=== PATIENT | male | born 1960 | race Caucasian/White ===

== ENCOUNTER 2017-08-25 15:04 | Inpatient (IN) | payer BC ==
[2017-08-25] MEDS ORDERED: Magnesium Oxide 400 MG Tab PO ONE (16:09)
[2017-08-25] MEDS ORDERED: Thiamine 100 MG in Sodium Chloride 0.9% 10 ML IV ONE (16:09)
[2017-08-25] MEDS ORDERED: Sodium Chloride 0.9% 10 ML Syringe FLUSH PRN ×2 (16:09→19:15)
[2017-08-25] MEDS ORDERED: Folic Acid 1 MG Tab PO ONE (16:09)
[2017-08-25] MEDS ORDERED: Potassium Chloride 10 MEQ in Premix Bag 1 BAG IV ONE ×4 (16:15)
[2017-08-25] MEDS ORDERED: Magnesium Sulfate/Water 2 GM in Premix Bag 1 BAG IV ONE ×2 (16:15→23:15)
--- NOTE | 2017-08-25 16:20 | EDM.PDOC ---
ED HPI GENERAL MEDICAL PROBLEM - General Chief Complaint: Abdominal Pain Stated Complaint: SENT BY FAM-LIVER FAILURE Time Seen by Provider: 08/25/17 15:55 Source of Information: Reports: Patient History Limitations: Reports: No Limitations - History of Present Illness INITIAL COMMENTS - FREE TEXT/NARRATIVE: Patient is a 56-year-old male who presents to the ED complaining of painless jaundice and distention to the abdomen. Patient was evaluated by PCP Dr. Hammond today with these concerns. Patient was referred to the ED with concerns of gallstone blocking the common bile duct. Patient has had no RUQ pain at this point. States he is a chronic alcoholic and normally drinks approx 3 to 5 shots of whiskey every evening and also a few beers. States he's been consuming alcohol like this since he was 21. In addition patient also been complaining of a slight cough that has been going on for the past week. Minimal production. He has had diarrhea as of recent. Appetite has been poor for the past week. States he has not eaten anything. Has not consumed any alcohol since Monday. Patient's urine as of the past few weeks has grown increasingly more dark. Denies any chest pain, nausea/vomiting, abdominal pain, blood within his urination or stool, dysuria, cancer history, history of hepatitis or IV drug use , recent out of country travel, ingestion of bad/questionable food, or any additional complaint. Lower Back Pain Score (Numeric/FACES): 4 - Related Data Allergies Allergy/AdvReac Type Severity Reaction Status Date / Time penicillin Allergy Cannot Verified 11/12/14 08:21 Remember venom-honey bee Allergy Cannot Verified 11/12/14 11:16 [bee venom (honey bee)] Remember codeine AdvReac Dizziness Verified 11/12/14 09:32 Home Meds: Home Meds Aspirin 1 tab PO DAILY 11/12/14 [History] Fish Oil/[place]-3 Fatty Acids [Fish Oil] 1 tab PO DAILY 11/12/14 [History] Past Medical History Respiratory History: Reports: Sleep Apnea Other Respiratory History: doesn't wear c-pap-does not work for him Gastrointestinal History: Reports: Jaundice Other Musculoskeletal History: lower back pain Psychiatric History: Reports: Addiction Other Psychiatric History: alcohol - Past Surgical History Musculoskeletal Surgical History: Reports: Other (See Below) Other Musculoskeletal Surgeries/Procedures:: low back and neck surgery Social & Family History - Tobacco Use Smoking Status *Q: Never Smoker - Recreational Drug Use Recreational Drug Use: No ED ROS GENERAL - Review of Systems Review Of Systems: ROS reveals no pertinent complaints other than HPI. ED EXAM, GENERAL - Physical Exam Exam: See Below Exam Limited By: No Limitations General Appearance: Alert, WD/WN, No Apparent Distress Eye Exam: Bilateral Eye: PERRL, Other (Sclerae icterus bilaterally) Ears: Hearing Grossly Normal Nose: Normal Inspection Throat/Mouth: Normal Voice, No Airway Compromise, Other (Jaundice noted to the oral mucous membranes.) Head: Atraumatic, Normocephalic Neck: Normal Inspection, Supple Respiratory/Chest: No Respiratory Distress, Lungs Clear, Normal Breath Sounds, No Accessory Muscle Use, Chest Non-Tender Cardiovascular: Normal Peripheral Pulses, Regular Rate, Rhythm, No Murmur Peripheral Pulses: 4+: Radial (L), Radial (R) GI/Abdominal: Normal Bowel Sounds, Distended, Other (Venous congestion noted. Fluid wave positive.) (Male) Exam: Deferred (No complaints) Rectal (Males) Exam: Deferred (No complaints) Back Exam: Normal Inspection Extremities: Normal Inspection, Normal Range of Motion, Non-Tender, No Pedal Edema, Normal Capillary Refill Neurological: Alert, Oriented, CN II-XII Intact, Normal Cognition, No Motor/ Sensory Deficits Psychiatric: Normal Affect, Normal Mood Skin Exam: Warm, Dry, Intact, No Rash, Jaundice Course - Vital Signs Last Recorded V/S: Last Vital Signs Temp 98.8 F 08/25/17 15:21 Pulse 103 H 08/25/17 15:21 Resp 20 08/25/17 15:21 BP 135/84 08/25/17 15:21 Pulse Ox 98 08/25/17 15:21 - Orders/Labs/Meds Orders: Active Orders 24 hr Category Date Time Status Cardiac Monitoring [RC] . DIRECTED Care 08/25/17 16:09 Active EKG Documentation Completion [RC] STAT Care 08/25/17 16:12 Active Oxygen Therapy [RC] PRN Care 08/25/17 16:10 Active Peripheral IV Care [RC] . DIRECTED Care 08/25/17 16:12 Active DRUG SCREEN, URINE [URCHEM] Stat Lab 08/25/17 18:27 Ordered Sodium Chloride 0.9% [Normal Saline] 1,000 ml Med 08/25/17 16:15 Active IV ASDIRECTED Sodium Chloride 0.9% [Saline Flush] Med 08/25/17 16:09 Active 10 ml FLUSH ASDIRECTED PRN Sodium Chloride 0.9% [Saline Flush] Med 08/25/17 19:15 Active 10 ml FLUSH ONETIME PRN Peripheral IV Insertion Adult [OM.PC] Urgent Oth 08/25/17 16:09 Ordered Medication Orders Sodium Chloride (Normal Saline) 1,000 mls @ 125 mls/hr IV ASDIRECTED GIANFRANCO Last Admin: 08/25/17 17:07 Dose: 125 mls/hr Sodium Chloride (Saline Flush) 10 ml FLUSH ASDIRECTED PRN PRN Reason: Keep Vein Open Last Admin: 08/25/17 17:15 Dose: 10 ml Sodium Chloride (Saline Flush) 10 ml FLUSH ONETIME PRN PRN Reason: IV FLUSH Last Admin: 08/25/17 19:39 Dose: 10 ml Labs: Laboratory Tests 08/25/17 08/25/17 08/25/17 Range/Units 15:50 15:50 16:25 PT (9.5-12.1) SECONDS INR Magnesium (1.8-2.4) mg/dl Direct Bilirubin 4.50 H (0.0-0.2) mg/dl GGT 286 H (15-85) U/L Urine Color [place] H (Yellow) Urine Appearance Clear (Clear) Urine pH 7.0 (5.0-8.0) Ur Specific [place] 1.020 (1.005-1.030) Urine Protein 1+ H (Negative) Urine Glucose (UA) Trace H (Negative) Urine Ketones Trace H (Negative) Urine Occult Blood Negative (Negative) Urine Nitrite Positive H (Negative) Urine Bilirubin 3+ H (Negative) Urine Urobilinogen >=8.0 H (0.2-1.0) Ur Leukocyte Esterase Negative (Negative) Urine RBC 0-5 (0-5) /hpf Urine WBC 0-5 (0-5) /hpf Ur Epithelial Cells 0-5 (0-5) /hpf Amorphous Sediment Few H (NOT SEEN) /hpf Urine Bacteria Moderate H (FEW) /hpf Hyaline Casts 0-5 (0-5) /lpf Urine Mucus Moderate H (FEW) /hpf Urine Opiates Screen (NEGATIVE) Ur Buprenorphine Scrn (NEGATIVE) Ur Oxycodone Screen (NEGATIVE) Urine Methadone Screen (NEGATIVE) Ur Propoxyphene Screen (NEGATIVE) Acetaminophen 0 L (10-30) ug/mL Ur Barbiturates Screen (NEGATIVE) Ur Tricyclics Screen (NEGATIVE) Ur Phencyclidine Scrn (NEGATIVE) Ur Amphetamine Screen (NEGATIVE) U Methamphetamines Scrn (NEGATIVE) U Benzodiazepines Scrn (NEGATIVE) U Cocaine Metab Screen (NEGATIVE) U Marijuana (THC) Screen (NEGATIVE) Ethyl Alcohol 0.00 (0.00) gm% 08/25/17 08/25/17 08/25/17 Range/Units 16:30 16:30 18:27 PT 22.5 H (9.5-12.1) SECONDS INR 2.09 Magnesium 1.0 L (1.8-2.4) mg/dl Direct Bilirubin (0.0-0.2) mg/dl GGT (15-85) U/L Urine Color (Yellow) Urine Appearance (Clear) Urine pH (5.0-8.0) Ur Specific [place] (1.005-1.030) Urine Protein (Negative) Urine Glucose (UA) (Negative) Urine Ketones (Negative) Urine Occult Blood (Negative) Urine Nitrite (Negative) Urine Bilirubin (Negative) Urine Urobilinogen (0.2-1.0) Ur Leukocyte Esterase (Negative) Urine RBC (0-5) /hpf Urine WBC (0-5) /hpf Ur Epithelial Cells (0-5) /hpf Amorphous Sediment (NOT SEEN) /hpf Urine Bacteria (FEW) /hpf Hyaline Casts (0-5) /lpf Urine Mucus (FEW) /hpf Urine Opiates Screen Negative (NEGATIVE) Ur Buprenorphine Scrn Negative (NEGATIVE) Ur Oxycodone Screen Negative (NEGATIVE) Urine Methadone Screen Negative (NEGATIVE) Ur Propoxyphene Screen Negative (NEGATIVE) Acetaminophen (10-30) ug/mL Ur Barbiturates Screen Negative (NEGATIVE) Ur Tricyclics Screen Negative (NEGATIVE) Ur Phencyclidine Scrn Negative (NEGATIVE) Ur Amphetamine Screen Negative (NEGATIVE) U Methamphetamines Scrn Negative (NEGATIVE) U Benzodiazepines Scrn Negative (NEGATIVE) U Cocaine Metab Screen Negative (NEGATIVE) U Marijuana (THC) Screen Negative (NEGATIVE) Ethyl Alcohol (0.00) gm% Meds: Medications Generic Name Dose Route Start Last Admin Trade Name Freq PRN Reason Stop Dose Admin Sodium Chloride 1,000 mls @ 125 mls/hr 08/25/17 16:15 08/25/17 17:07 Normal Saline IV 125 mls/hr ASDIRECTED GIANFRANCO Administration Sodium Chloride 10 ml 08/25/17 16:09 08/25/17 17:15 Saline Flush FLUSH 10 ml ASDIRECTED PRN Administration Keep Vein Open Sodium Chloride 10 ml 08/25/17 19:15 08/25/17 19:39 Saline Flush FLUSH 10 ml ONETIME PRN Administration IV FLUSH Discontinued Medications Generic Name Dose Route Start Last Admin Trade Name Freq PRN Reason Stop Dose Admin Diatrizoate Meglum/Diatrizoate Sod 120 ml 08/25/17 19:15 08/25/17 19:38 Gastrografin 37% PO 08/25/17 19:16 90 ml ONETIME ONE Administration Folic Acid 1 mg 08/25/17 16:09 08/25/17 17:24 Folic Acid PO 08/25/17 16:10 1 mg ONETIME ONE Administration Thiamine HCl 100 mg/ Sodium 11 mls @ 200 mls/hr 08/25/17 16:09 08/25/17 17:18 Chloride IV 08/25/17 16:12 Not Given ONETIME ONE Magnesium Sulfate 2 gm/ Premix 50 mls @ 25 mls/hr 08/25/17 16:15 08/25/17 17: 15 IV 08/25/17 18:14 25 mls/hr ONETIME ONE Administration Potassium Chloride 10 meq/ 100 mls @ 100 mls/hr 08/25/17 16:15 08/25/17 17:12 Premix IV 08/25/17 17:14 100 mls/hr ONETIME ONE Administration Potassium Chloride 10 meq/ 100 mls @ 100 mls/hr 08/25/17 16:15 08/25/17 18:31 Premix IV 08/25/17 17:14 100 mls/hr ONETIME ONE Administration Thiamine HCl 100 mg/ Sodium 101 mls @ 202 mls/hr 08/25/17 17:14 08/25/17 17: 17 Chloride IV 08/25/17 17:15 202 mls/hr ONETIME ONE Administration Iopamidol 150 ml 08/25/17 19:15 08/25/17 19:39 Isovue-300 (61%) IVPUSH 08/25/17 19:16 150 ml ONETIME ONE Administration Magnesium Oxide 400 mg 08/25/17 16:09 08/25/17 17:24 Magnesium Oxide PO 08/25/17 16:10 400 mg ONETIME ONE Administration - Re-Assessments/Exams Free Text/Narrative Re-Assessment/Exam: Labs obtained at included: WBC with differential, amylase, lipase, ammonia level, and CMP. CBC: White blood cell count 4.2, hemoglobin 14.3, platelet count 29, ammonia level 16, amylase 78, lipase 319, glucose 131, BUN 5, creatinine 0.8, sodium 135 , potassium 3.1, CO2 29, AG 14, calcium 7.6, albumin 3.0, alk phosphatase 149, AST 341, ALT 63, total bilirubin 8.6. IV established. I ordered full gas at 1 mg by mouth, magnesium oxide 4 mg by mouth, and also thiamine arm against by mouth. Patient's potassium level was 3.1 over it [facility]. I ordered potassium 20 mEq and also magnesium 2 g IV. I ordered urine drug screen, UA, significant lateral, and serum EtOH. In addition pleat abdomen and chest x-ray two-view along with EKG and cardiac monitoring ordered. I also ordered GGT and also direct bilirubin. EKG sinus rhythm at a rate [address] T changes. NV interval is 190. QTC is 506. Per nursing staff patient already had a chest x-ray over at [facility]. This was not voiced to me. Results were not provided to us as well. They are contacting [place] at this time to get the results and have images sent. Direct bilirubin is 4.5. GGT is 286. Acetaminophen low. Serum EtOH 0.00. UA has not been obtained. CXR obtained at revealed no acute findings. Reviewed with Dr. Cordova. Ultrasound impression: Very echogenic liver most likely representing fatty infiltration. Spinal negative. Mild ascites. Gallbladder wall thickening with questionable small gallbladder polyp. Gallbladder wall thickening may be artificial as this can be caused by ascites. No shattering cholelithiasis is seen. Common bile duct measures slightly prominent 8 mm. Magnesium is 1.0. INR is 2.09. Findings are consistent with malnutrition and also chronic liver disease. UA: Origin color, protein one plus, trace glucose, ketones trace, nitrates positive, bilirubin 3+, urobilinogen greater than 8, amorphous sediment few, bacteria moderate, urine mucus moderate. CT abdomen and pelvis Technique: Multiple axial sections were obtained from above the dome of the diaphragm inferiorly through the pubic symphysis. Intravenous contrast was utilized. Oral contrast has been given. Comparison: Previous abdominal ultrasound performed on the same day (4:47 PM). Findings: Small portion of the visualized lung bases are clear. Liver is diffusely abnormal with multiple small nodular areas of poor enhancement. Findings most likely due to diffuse cirrhotic change. Liver biopsy would be needed to further evaluate. Spleen is enlarged. Adrenal glands show no nodule. Pancreas is within normal limits. Aorta shows atherosclerotic change without aneurysmal dilatation. No retroperitoneal adenopathy is seen. Kidneys show symmetric contrast enhancement without hydronephrosis or mass. Gallbladder shows no calcified gallstones. Ascites is seen throughout the abdomen and pelvis. Prominent mesenteric vessels are seen most likely due the portal hypertension from the liver disease. There is a fat containing umbilical hernia which contains some of these dilated vessels. No pelvic mass or adenopathy is seen. Degenerative change is noted throughout the spine. Impression: 1. Diffusely abnormal liver with multiple small nodular areas of poor enhancement. Findings most likely represent cirrhosis although liver biopsy is recommended to further evaluate. 2. Splenomegaly which is likely from portal hypertension. 3. Prominent mesenteric vessels also felt compatible with portal hypertension from the liver disease. 4. Ascites. 5. Other incidental findings. I have ordered a hepatitis panel. [address] Echols [facility] . Does not believe patient requires transfer to [place] for management this point. Can be done here locally. States the patient needs to be admitted for at least a week and started on Aldactone 100 mg every day Lasix 40 mg every day. In addition also recommends stool studies be obtained with a history of diarrhea. Patient has had 4 episodes of diarrhea while in the ED. Studies will include stool wbc's, C. difficile, stool culture, and ova parasites. Also suggested low- salt diet. No aspirin. Ascites worsens and INR has not decreased may administer FFP for paracentesis as long as platelets are adequate. At this point medical management required. 2119 I have spoke with Dr. Frazier [facility]. He has accepted the patient. MCG to be completed. Dx: thrombocytopenia, hypokalemia, hypomagnesemia, elevated direct bilirubin, elevated GGT, alcoholism, ascites, elevated INR, diarrhea, likely cirrhosis, and portal hypertension. Departure - Departure Time of Disposition: 15:55 Disposition: Admitted As Inpatient 66 Condition: Good Clinical Impression: Thrombocytopenia due to hypersplenism, Elevated INR, Hypokalemia, Low magnesium level, Portal hypertension Cirrhosis, alcoholic Qualifiers: Ascites presence: with ascites Qualified Code(s): K70.31 - Alcoholic cirrhosis of liver with ascites Diarrhea Qualifiers: Diarrhea type: unspecified type Qualified Code(s): R19.7 - Diarrhea, unspecified - Discharge Information Referrals: Lisette Koehler MD [Primary Care Provider] - Forms: ED Department Discharge - My Orders Last 24 Hours: My Active Orders 08/25/17 16:09 Cardiac Monitoring [RC] . DIRECTED Sodium Chloride 0.9% [Saline Flush] 10 ml FLUSH ASDIRECTED PRN Peripheral IV Insertion Adult [OM.PC] Urgent 08/25/17 16:10 Oxygen Therapy [RC] PRN 08/25/17 16:12 EKG Documentation Completion [RC] STAT Peripheral IV Care [RC] . DIRECTED 08/25/17 16:15 Sodium Chloride 0.9% [Normal Saline] 1,000 ml IV ASDIRECTED 08/25/17 18:27 DRUG SCREEN, URINE [URCHEM] Stat 08/25/17 19:15 Sodium Chloride 0.9% [Saline Flush] 10 ml FLUSH ONETIME PRN - Assessment/Plan Last 24 Hours: My Active Orders 08/25/17 16:09 Cardiac Monitoring [RC] . DIRECTED Sodium Chloride 0.9% [Saline Flush] 10 ml FLUSH ASDIRECTED PRN Peripheral IV Insertion Adult [OM.PC] Urgent 08/25/17 16:10 Oxygen Therapy [RC] PRN 08/25/17 16:12 EKG Documentation Completion [RC] STAT Peripheral IV Care [RC] . DIRECTED 08/25/17 16:15 Sodium Chloride 0.9% [Normal Saline] 1,000 ml IV ASDIRECTED 08/25/17 18:27 DRUG SCREEN, URINE [URCHEM] Stat 08/25/17 19:15 Sodium Chloride 0.9% [Saline Flush] 10 ml FLUSH ONETIME PRN
[2017-08-25] MEDS: Sodium Chloride 0.9% 1,000 ML IV SCH (17:07)
[2017-08-25] MEDS ORDERED: Thiamine 100 MG in Sodium Chloride 0.9% 100 ML IV ONE (17:14)
--- NOTE | 2017-08-25 17:46 | US ---
Abdominal ultrasound: Multiple real-time images of the abdomen were obtained. Comparison: No prior abdominal imaging. Findings: Liver is very echogenic most likely representing fatty infiltration. Liver is also generous in size. Small amount of fluid is seen around the liver. Gallbladder is slightly distended. Gallbladder wall thickening is seen although difficult to determine if this is a real finding given that this can occur with ascites. Questionable small gallbladder polyp is seen. No shadowing cholelithiasis is noted. Common bile duct measures at the upper limits of normal at 8 mm. Kidneys show no hydronephrosis or mass. Right kidney measures 13.2 cm in length. Left kidney measures 12.6 cm in length. Spleen is enlarged with a length of 16.7 cm. Aorta is poorly seen due to obscuring bowel gas. Pancreas is mostly obscured. Head of the pancreas is felt to be within normal limits. Inferior vena cava and portal vein were not able to be seen. Impression: 1. Very echogenic liver most likely representing fatty infiltration. 2. Splenomegaly. 3. Mild ascites. 4. Gallbladder wall thickening with questionable small gallbladder polyp. Gallbladder wall thickening may be artifactual as this can be caused by ascites. No shadowing cholelithiasis is seen. Common bile duct measures slightly prominent at 8 mm. Diagnostic code #3
[2017-08-25] MEDS ORDERED: Iopamidol 612 MG/ML 150 ML Bottle IVPUSH ONE (19:15)
[2017-08-25] MEDS ORDERED: Diatrizoate Meglumine/Diatrizoate Sodium 37% 120 ML Bottle PO ONE (19:15)
--- NOTE | 2017-08-25 20:06 | CT ---
CT abdomen and pelvis Technique: Multiple axial sections were obtained from above the dome of the diaphragm inferiorly through the pubic symphysis. Intravenous contrast was utilized. Oral contrast has been given. Comparison: Previous abdominal ultrasound performed on the same day (4:47 PM). Findings: Small portion of the visualized lung bases are clear. Liver is diffusely abnormal with multiple small nodular areas of poor enhancement. Findings most likely due to diffuse cirrhotic change. Liver biopsy would be needed to further evaluate. Spleen is enlarged. Adrenal glands show no nodule. Pancreas is within normal limits. Aorta shows atherosclerotic change without aneurysmal dilatation. No retroperitoneal adenopathy is seen. Kidneys show symmetric contrast enhancement without hydronephrosis or mass. Gallbladder shows no calcified gallstones. Ascites is seen throughout the abdomen and pelvis. Prominent mesenteric vessels are seen most likely due the portal hypertension from the liver disease. There is a fat containing umbilical hernia which contains some of these dilated vessels. No pelvic mass or adenopathy is seen. Degenerative change is noted throughout the spine. Impression: 1. Diffusely abnormal liver with multiple small nodular areas of poor enhancement. Findings most likely represent cirrhosis although liver biopsy is recommended to further evaluate. 2. Splenomegaly which is likely from portal hypertension. 3. Prominent mesenteric vessels also felt compatible with portal hypertension from the liver disease. 4. Ascites. 5. Other incidental findings. Diagnostic code #9
[2017-08-25] MEDS ORDERED: Metoprolol Tartrate 5 MG/5 ML SDV IVPUSH PRN (22:39)
[2017-08-25] MEDS ORDERED: hydrALAZINE 20 MG/ML SDV IVPUSH PRN (22:39)
[2017-08-25] MEDS ORDERED: LORazepam 2 MG/ML SDV IVPUSH PRN ×2 (22:39→23:13)
[2017-08-25] MEDS ORDERED: oxyCODONE 5 MG Tab PO PRN (22:40)
[2017-08-25] MEDS ORDERED: Acetaminophen 325 MG Tab PO PRN (22:40)
[2017-08-25] MEDS ORDERED: Morphine 2 MG/ML Syringe IVPUSH PRN (22:40)
[2017-08-25] MEDS ORDERED: Promethazine 12.5 MG in Sodium Chloride 0.9% 50 ML IV PRN (22:43)
[2017-08-25] MEDS ORDERED: Albuterol/Ipratropium 3.0-0.5 MG/3 ML Neb Soln NEB PRN (22:43)
[2017-08-25] MEDS ORDERED: Temazepam 15 MG Cap PO PRN (22:43)
[2017-08-25] MEDS ORDERED: Ondansetron 4 MG/2 ML SDV IV PRN (22:43)
[2017-08-25] MEDS ORDERED: LORazepam 2 MG/ML SDV IV PRN (22:43)
[2017-08-25] MEDS ORDERED: Lactulose Soln 10 GM/15 ML 30 ML UD Cup PO PRN (23:08)
--- NOTE | 2017-08-25 23:10 | PCM.HP ---
H&P History of Present Illness - General Date of Service: 08/25/17 Admit Problem/Dx: Admission Diagnosis/Problem Admission Diagnosis/Problem Cirrhosis of liver with ascites Source of Information: Patient, Family, Provider, RN Notes Reviewed History Limitations: Reports: No Limitations - History of Present Illness Initial Comments - Free Text/Narative: This is a 56-year-old white male with a past medical hx/o EBER not on CPAP, Chronic LBP and Obesity who comes in for evaluation of painless jaundice and abdominal distention. Patient was initially seen at his PCP's office but was referred to ED for further evaluation for concerns of obstructing gallstone in the common bile duct. Patient reports no RUQ pain. However he carries a hx/o chronic alcohol use/ abuse since he was 15 years old. He normally drinks 3-4 shots of whiskey and at times a few beers. His main complaint is a mild cough with minimal production that has been going on for the past week. He has yellow eyes and increasingly dark colored urine. He denies any chest pain, shortness of breath, nausea/ vomiting, abdominal pain but admits to having watery diarrhea. He denies any hx/o blood transfusions, no IVDU, incarceration and or viral hepatitis in the past. Patient moved here in [place] in 2011 from [place] with his family. His initial work up in ED shows an abnormal coagulation studies of 22.5 PT and 2.09 of INR. His magnesium is 1.0, direct bilirubin of 4.0, GGT of 286, and total bilirubin of 8.4. His UA shows orange colored, 3+ of urine bilirubin and greater than 8 urobilinogen. His UDS is negative. C. difficile screening is positive. Abdominal ultrasound report reads very atypical genic liver most likely representing fatty infiltration. His splenomegaly. Mild ascites. Gallbladder wall thickening with questionable small gallbladder polyp. Gallbladder wall thickening may be artifactual as discussed and because of ascites. No shadowing cholelithiasis is seen. Common bile duct measures slightly prominent at 8 mm. Abdominal/Pelvic CT scan report reads diffuse abnormal liver with multiple small nodule areas of poor enhancement. Findings most likely represent cirrhosis of the liver biopsy is recommended to further evaluate. Splenomegaly which is likely from portal hypertension. Mesenteric vessels also compatible with portal hypertension from the liver disease. Ascites. Patient is being admitted for complications related to liver disease likely alcoholic cirrhosis. He is full code. Lower Back Pain Score (Numeric/FACES): 4 - Related Data Allergies/Adverse Reactions: Allergies Allergy/AdvReac Type Severity Reaction Status Date / Time penicillin Allergy Cannot Verified 08/26/17 03:38 Remember venom-honey bee Allergy Cannot Verified 08/26/17 03:38 [bee venom (honey bee)] Remember codeine AdvReac Dizziness Verified 08/26/17 03:38 Home Medications: Home Meds Aspirin 1 tab PO DAILY 11/12/14 [History] Fish Oil/[place]-3 Fatty Acids [Fish Oil] 1 tab PO DAILY 11/12/14 [History] Past Medical History Respiratory History: Reports: Sleep Apnea Other Respiratory History: doesn't wear c-pap-does not work for him Gastrointestinal History: Reports: Jaundice Other Musculoskeletal History: lower back pain Psychiatric History: Reports: Addiction Other Psychiatric History: alcohol - Past Surgical History Musculoskeletal Surgical History: Reports: Other (See Below) Other Musculoskeletal Surgeries/Procedures:: low back and neck surgery Social & Family History - Tobacco Use Smoking Status *Q: Never Smoker - Recreational Drug Use Recreational Drug Use: No H&P Review of Systems - Review of Systems: Review Of Systems: See Below General: Denies: Fever, Chills, Malaise, Weakness, Fatigue HEENT: Reports: Other (icteric sclerae) Pulmonary: Reports: Cough, Sputum. Denies: Shortness of Breath, Pleuritic Chest Pain Cardiovascular: Denies: Chest Pain, Palpitations, Dyspnea on Exertion, Lightheadedness, Blood Pressure Problem Gastrointestinal: Reports: Diarrhea, Distension. Denies: Abdominal Pain, Decreased Appetite, Nausea, Vomiting Genitourinary: Reports: No Symptoms, Other (colored urine) Musculoskeletal: Reports: No Symptoms Skin: Denies: Cyanosis, Jaundice, Mottled, Pallor, Diaphoresis, Erythema Psychiatric: Denies: Depression, Anxiety, Agitation, Hallucinations Neurological: Denies: Confusion, Difficulty Walking, Weakness, Gait Disturbance Hematologic/Lymphatic: Reports: No Symptoms Immunologic: Reports: No Symptoms Exam - Exam Exam: See Below - Vital Signs Vital Signs: Last Vital Signs Temp 37.1 C 08/25/17 15:21 Pulse 97 08/25/17 20:31 Resp 18 08/25/17 20:31 BP 117/70 08/25/17 20:31 Pulse Ox 95 08/25/17 20:31 Weight: 119.748 kg - Exam General: Alert, Oriented, Cooperative, Other (Obese). No: Mild Distress HEENT: Conjunctiva Clear, EACs Clear, EOMI, Hearing Intact, Mucosa Moist & [place] , Nares Patent, Normal Nasal Septum, Posterior Pharynx Clear, Pupils Equal, Pupils Reactive, Scleral Icterus Neck: Supple, Trachea Midline, +2 Carotid Pulse wo Bruit Lungs: Clear to Auscultation, Normal Respiratory Effort, Decreased Breath Sounds Cardiovascular: Regular Rate, Regular Rhythm GI/Abdominal Exam: Normal Bowel Sounds, Soft, Non-Tender, Distended, Hernia ( Umbilical), Hepatomegaly, Splenomegaly, Other (Caput Medusae; Umbilical Hernia) . No: Guarding, Rigid, Rebound (Male) Exam: Deferred Rectal (Males) Exam: Deferred Back Exam: Normal Inspection, Decreased Range of Motion Extremities: Normal Inspection, Normal Range of Motion, Non-Tender, Normal Capillary Refill, Other (trace peripheral edema) Peripheral Pulses: 2+: Posterior Tibial (L), Posterior Tibial (R), Dorsalis Pedis (L), Dorsalis Pedis (R) Skin: Warm, Dry, Intact Skin Alteration Location (Drawings Not To Scale): 1 - prominet blood vessels 2 - palmar erythema 3 - palmar erythema 4 - spider nevi or angiomata 5 - spider nevi or angiomata Neuro Extensive - Mental Status: Oriented x3, Normal Cognition, Memory Intact Neuro Extensive - Motor, Sensory, Reflexes: CN II-XII Intact, Normal Gait, Other (No asterixis) Psychiatric: Alert, Normal Affect, Normal Mood - Patient Data Lab Results Last 24 hrs: Laboratory Results - last 24 hr 08/25/17 08/25/17 08/25/17 Range/Units 15:50 15:50 16:25 PT (9.5-12.1) SECONDS INR Magnesium (1.8-2.4) mg/dl Direct Bilirubin 4.50 H (0.0-0.2) mg/dl GGT 286 H (15-85) U/L Urine Color Red [place] H (Yellow) Urine Appearance Clear (Clear) Urine pH 7.0 (5.0-8.0) Ur Specific [place] 1.020 (1.005-1.030) Urine Protein 1+ H (Negative) Urine Glucose (UA) Trace H (Negative) Urine Ketones Trace H (Negative) Urine Occult Blood Negative (Negative) Urine Nitrite Positive H (Negative) Urine Bilirubin 3+ H (Negative) Urine Urobilinogen >=8.0 H (0.2-1.0) Ur Leukocyte Esterase Negative (Negative) Urine RBC 0-5 (0-5) /hpf Urine WBC 0-5 (0-5) /hpf Ur Epithelial Cells 0-5 (0-5) /hpf Amorphous Sediment Few H (NOT SEEN) /hpf Urine Bacteria Moderate H (FEW) /hpf Hyaline Casts 0-5 (0-5) /lpf Urine Mucus Moderate H (FEW) /hpf Urine Opiates Screen (NEGATIVE) Ur Buprenorphine Scrn (NEGATIVE) Ur Oxycodone Screen (NEGATIVE) Urine Methadone Screen (NEGATIVE) Ur Propoxyphene Screen (NEGATIVE) Acetaminophen 0 L (10-30) ug/mL Ur Barbiturates Screen (NEGATIVE) Ur Tricyclics Screen (NEGATIVE) Ur Phencyclidine Scrn (NEGATIVE) Ur Amphetamine Screen (NEGATIVE) U Methamphetamines Scrn (NEGATIVE) U Benzodiazepines Scrn (NEGATIVE) U Cocaine Metab Screen (NEGATIVE) U Marijuana (THC) Screen (NEGATIVE) Ethyl Alcohol 0.00 (0.00) gm% 08/25/17 08/25/17 08/25/17 Range/Units 16:30 16:30 18:27 PT 22.5 H (9.5-12.1) SECONDS INR 2.09 Magnesium 1.0 L (1.8-2.4) mg/dl Direct Bilirubin (0.0-0.2) mg/dl GGT (15-85) U/L Urine Color (Yellow) Urine Appearance (Clear) Urine pH (5.0-8.0) Ur Specific [place] (1.005-1.030) Urine Protein (Negative) Urine Glucose (UA) (Negative) Urine Ketones (Negative) Urine Occult Blood (Negative) Urine Nitrite (Negative) Urine Bilirubin (Negative) Urine Urobilinogen (0.2-1.0) Ur Leukocyte Esterase (Negative) Urine RBC (0-5) /hpf Urine WBC (0-5) /hpf Ur Epithelial Cells (0-5) /hpf Amorphous Sediment (NOT SEEN) /hpf Urine Bacteria (FEW) /hpf Hyaline Casts (0-5) /lpf Urine Mucus (FEW) /hpf Urine Opiates Screen Negative (NEGATIVE) Ur Buprenorphine Scrn Negative (NEGATIVE) Ur Oxycodone Screen Negative (NEGATIVE) Urine Methadone Screen Negative (NEGATIVE) Ur Propoxyphene Screen Negative (NEGATIVE) Acetaminophen (10-30) ug/mL Ur Barbiturates Screen Negative (NEGATIVE) Ur Tricyclics Screen Negative (NEGATIVE) Ur Phencyclidine Scrn Negative (NEGATIVE) Ur Amphetamine Screen Negative (NEGATIVE) U Methamphetamines Scrn Negative (NEGATIVE) U Benzodiazepines Scrn Negative (NEGATIVE) U Cocaine Metab Screen Negative (NEGATIVE) U Marijuana (THC) Screen Negative (NEGATIVE) Ethyl Alcohol (0.00) gm% Result Diagrams: 08/27/17 06:25 08/27/17 06:25 Scott Results Last 24 hrs: Microbiology 08/25/17 21:20 Stool for WBCs - Final Stool / Feces 08/25/17 21:20 Stool Occult Blood (SCOTT) - Final Stool / Feces Problem List Initiated/Reviewed/Updated: Yes Orders Last 24hrs: Active Orders 24 hr Category Date Time Status Admission Status [Patient Status] [ADT] Routine ADT 08/25/17 22:14 Active Ambulate [RC] ASDIRECTED Care 08/25/17 22:40 Ordered Cardiac Monitoring [RC] . DIRECTED Care 08/25/17 16:09 Active Cardiac Monitoring [RC] . DIRECTED Care 08/25/17 22:14 Active Intake and Output [RC] QSHIFT Care 08/25/17 22:40 Ordered Notify Provider Consults [RC] ASDIRECTED Care 08/25/17 22:45 Ordered Oxygen Therapy [RC] PRN Care 08/25/17 16:10 Active Oxygen Therapy [RC] PRN Care 08/25/17 22:40 Ordered Peripheral IV Care [RC] . DIRECTED Care 08/25/17 16:12 Active RT Aerosol Therapy [RC] ASDIRECTED Care 08/25/17 22:44 Ordered Up ad Siobhan [RC] ASDIRECTED Care 08/25/17 22:40 Ordered VTE/DVT Education [RC] PER UNIT ROUTINE Care 08/25/17 22:40 Ordered Vital Signs [RC] Q4H Care 08/25/17 22:40 Ordered Consult to Case Management [CONS] Routine Cons 08/25/17 22:44 Ordered Consult to Survey Compiler [CONS] Routine Cons 08/25/17 22:44 Ordered Consult to Physician [CONS] Routine Cons 08/25/17 22:44 Ordered Consult to Brokerage Purchase And Sale Clerk [CONS] Routine Cons 08/25/17 22:44 Ordered Consult to Spiritual Care [CONS] Routine Cons 08/25/17 22:44 Ordered OT Evaluation and Treatment [CONS] Routine Cons 08/25/17 22:44 Ordered PT Evaluation and Treatment [CONS] Routine Cons 08/25/17 22:44 Ordered 2 Gram Sodium Diet [DIET] Diet 08/25/17 Dinner Ordered Fluid Restriction [DIET] Diet 08/25/17 Dinner Active AFP, SERUM, TUMOR MARKER [REF] Stat Lab 08/25/17 22:52 Ordered [id number] PHENOTYP [REF] Stat Lab 08/25/17 23:09 Ordered AMMONIA VENOUS [CHEM] Stat Lab 08/25/17 23:07 Ordered C DIFFICILE BY PCR W/NAP1 [MOLEC] Stat Lab 08/25/17 21:20 Received C-REACTIVE PROTEIN [CHEM] AM Lab 08/26/17 05:11 Ordered C-REACTIVE PROTEIN [CHEM] AM Lab 08/27/17 05:11 Ordered C-REACTIVE PROTEIN [CHEM] AM Lab 08/28/17 05:11 Ordered CBC WITH AUTO DIFF [HEME] AM Lab 08/26/17 05:11 Ordered CBC WITH AUTO DIFF [HEME] AM Lab 08/27/17 05:11 Ordered CBC WITH AUTO DIFF [HEME] AM Lab 08/28/17 05:11 Ordered CBC WITH AUTO DIFF [HEME] AM Lab 08/29/17 05:11 Ordered CBC WITH AUTO DIFF [HEME] AM Lab 08/30/17 05:11 Ordered COMPREHENSIVE METABOLIC PN,CMP [CHEM] AM Lab 08/26/17 05:11 Ordered COMPREHENSIVE METABOLIC PN,CMP [CHEM] AM Lab 08/27/17 05:11 Ordered COMPREHENSIVE METABOLIC PN,CMP [CHEM] AM Lab 08/28/17 05:11 Ordered COMPREHENSIVE METABOLIC PN,CMP [CHEM] AM Lab 08/29/17 05:11 Ordered COMPREHENSIVE METABOLIC PN,CMP [CHEM] AM Lab 08/30/17 05:11 Ordered CULTURE STOOL + SHIGATOX [RM] Stat Lab 08/25/17 21:20 Received DRUG SCREEN, URINE [URCHEM] Stat Lab 08/25/17 18:27 Ordered HEPATITIS PANEL (4) [REF] Stat Lab 08/25/17 21:00 Received Hemoccult [OCCULT BLOOD DIAGNOSTIC] [OP] Stat Lab 08/25/17 21:20 Ordered MAGNESIUM [CHEM] AM Lab 08/26/17 05:11 Ordered MAGNESIUM [CHEM] AM Lab 08/27/17 05:11 Ordered MAGNESIUM [CHEM] AM Lab 08/28/17 05:11 Ordered MAGNESIUM [CHEM] AM Lab 08/29/17 05:11 Ordered MAGNESIUM [CHEM] AM Lab 08/30/17 05:11 Ordered OVA & PARASITES BY IMMUNOASSAY [MREF] Stat Lab 08/25/17 21:20 Received WBC, STOOL [OP] Stat Lab 08/25/17 21:20 Ordered Acetaminophen [Tylenol] Med 08/25/17 22:40 Ordered 650 mg PO Q4H PRN Albuterol/Ipratropium [DuoNeb 3.0-0.5 MG/3 ML] Med 08/25/17 22:43 Ordered 3 ml NEB Q4H PRN Fish Oil/[place]-3 Fatty Acids [Fish Oil] Med 08/26/17 09:00 Ordered 1 tab PO DAILY LORazepam [Ativan] Med 08/25/17 22:43 Ordered 1 mg IV Q6H PRN LORazepam [Ativan] Med 08/25/17 22:39 Ordered 2 mg IVPUSH Q4H PRN Lactulose [Cephulac] Med 08/25/17 23:08 Ordered 20 gm PO BID PRN Magnesium Rep Pharmacy to Dose [Pharmacy to Dose - Med 08/25/17 22:45 Ordered Magnesium Replacement] 1 dose .XX ASDIRECTED Metoprolol Tartrate [Lopressor] Med 08/25/17 22:39 Ordered 5 mg IVPUSH Q4H PRN Morphine Med 08/25/17 22:40 Ordered 1 mg IVPUSH Q4H PRN Ondansetron [Zofran] Med 08/25/17 22:43 Ordered 4 mg IV Q6H PRN Pantoprazole [ProTONIX IV] Med 08/26/17 09:00 Ordered 40 mg IV Q12HR Potassium Rep Pharmacy to Dose [Pharmacy to Dose - Med 08/25/17 22:45 Ordered Potassium Replacement] 1 dose .XX ASDIRECTED Promethazine [Phenergan] 12.5 mg Med 08/25/17 22:43 Ordered Sodium Chloride 0.9% [Normal Saline] 50 ml IV Q6H Sodium Chloride 0.9% [Normal Saline] 1,000 ml Med 08/25/17 16:15 Active IV ASDIRECTED Sodium Chloride 0.9% [Saline Flush] Med 08/25/17 16:09 Active 10 ml FLUSH ASDIRECTED PRN Sodium Chloride 0.9% [Saline Flush] Med 08/25/17 19:15 Active 10 ml FLUSH ONETIME PRN Temazepam [Restoril] Med 08/25/17 22:43 Ordered 15 mg PO BEDTIME PRN hydrALAZINE [Apresoline] Med 08/25/17 22:39 Ordered 20 mg IVPUSH Q4H PRN oxyCODONE Med 08/25/17 22:40 Ordered 10 mg PO Q4H PRN Peripheral IV Insertion Adult [OM.PC] Urgent Oth 08/25/17 16:09 Ordered Sequential Compression Device [OM.PC] Per Unit Routine Oth 08/25/17 22:42 Ordered Resuscitation Status Routine Resus Stat 08/25/17 22:40 Ordered Medication Orders Acetaminophen (Tylenol) 650 mg PO Q4H PRN PRN Reason: Pain (Mild 1-3)/fever Albuterol/Ipratropium (Duoneb 3.0-0.5 Mg/3 Ml) 3 ml NEB Q4H PRN PRN Reason: Shortness Of Breath/wheezing Fish Oil (Fish Oil) 1 gm PO DAILY [facility] Hydralazine HCl (Apresoline) 20 mg IVPUSH Q4H PRN PRN Reason: Hypertension Sodium Chloride (Normal Saline) 1,000 mls @ 125 mls/hr IV ASDIRECTED [facility] Last Admin: 08/25/17 17:07 Dose: 125 mls/hr Promethazine HCl 12.5 mg/ (Sodium Chloride) 50.5 mls @ 100 mls/hr IV Q6H PRN PRN Reason: Nausea/Vomiting Lorazepam (Ativan) 2 mg IVPUSH Q4H PRN PRN Reason: Seizures Lorazepam (Ativan) 1 mg IV Q6H PRN PRN Reason: Anxiety Magnesium Sulfate (Pharmacy To Dose - Magnesium Replacement) 1 dose .XX ASDIRECTED [facility] Metoprolol Tartrate (Lopressor) 5 mg IVPUSH Q4H PRN PRN Reason: Tachycardia Morphine Sulfate (Morphine) 1 mg IVPUSH Q4H PRN PRN Reason: Pain (severe 7-10) Stop: 08/30/17 22:43 Ondansetron HCl (Zofran) 4 mg IV Q6H PRN PRN Reason: Nausea/Vomiting Oxycodone HCl (Oxycodone) 10 mg PO Q4H PRN PRN Reason: Pain (moderate 4-6) Pantoprazole Sodium (Protonix Iv) 40 mg IV Q12HR GIANFRANCO Potassium Chloride (Pharmacy To Dose - Potassium Replacement) 1 dose .XX ASDIRECTED GIANFRANCO Sodium Chloride (Saline Flush) 10 ml FLUSH ASDIRECTED PRN PRN Reason: Keep Vein Open Last Admin: 08/25/17 17:15 Dose: 10 ml Sodium Chloride (Saline Flush) 10 ml FLUSH ONETIME PRN PRN Reason: IV FLUSH Last Admin: 08/25/17 19:39 Dose: 10 ml Temazepam (Restoril) 15 mg PO BEDTIME PRN PRN Reason: Sleep Assessment/Plan Comment:: Assessment/Plan: Acute: Liver Cirrhosis/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 - Likely 2/2 ETOH Abuse - Carries a hx/o 15-20 of heavy alcoholic drinking - He drinks 3-4 shots of whiskey and sometimes with beers - CT scan report: Diffuse abnormal liver with multiple small nodular areas of poor enhancement--> biopsy is recommended (will be done outpatient) - Limit Tylenol to 3500/day and Advised to quit drinking - MELD Score 23 and Child-Duran Score 11 (Life Expectancy: 1-3 years with abdominal surgery raffaele-operative mortality of 82%) - Folic Acid, Thiamine and MVI Daily - Hepatitis Panel, Alpha fetoprotein and Alpha 1 anti-trypsin - Need liver biopsy for staging if he has HCC--> refer to GI in [place] Abdominal Ascites/Peripheral Edema and Portal HTN - 2/2 Above - Aldactone 25 mg po BID, Demadex 20 po daily, Capoten 12.5 mg po Q8H and Famotidine 20 mg IVP BID - CT scan: mild ascites--> no need for paracentesis at this time Splenomegaly - 2/2 Portal HTN - Treatment as above C. Diff Associated Diarrhea - New Onset - Vancomycin 125 mg po QID fro 10 days - Isolation precaution Jaundice/Hyperbilirubinemia - 2/2 ETOH Liver Cirrhosis - R/o Viral Hepatitis - Hospital has no cholestyramine so we will use fenofibrate for now then switch him to it on discharge Hypomagnesmia - Mg 1.0 - 2/2 inadequate intake - Replete and monitor Elevated PT/INR - Vit K 5 mg IM for 3 days then d/c Thrombocytopenia - 2/2 Splenic Sequestration - Platelet of 29,000 from the clinic - Avoid ASA ETOH Abuse - [facility] Protocol - Ativan/Clonidin/Librium for Symptomatic control Chronic: EBER Back Pain ETOH Abuse Plan: Admit to [facility] with Tele Resume Home Meds Routine AM Labs Ammonia and LDH PT/OT consult Consider GS consult SW/CM for d/c planning GI eval outpatient after discharge Code status: 1
[2017-08-25] MEDS ORDERED: cloNIDine 0.1 MG Tab PO PRN (23:12)
[2017-08-25] MEDS ORDERED: Haloperidol Lactate 5 MG/ML SDV IM PRN (23:12)
[2017-08-25] MEDS ORDERED: Nicotine 21 MG/24 Hr Patch TRDERM PRN (23:12)
[2017-08-25] MEDS ORDERED: chlordiazePOXIDE 25 MG Cap PO PRN (23:12)
[2017-08-26] MEDS ORDERED: Magnesium Sulfate/Water 2 GM in Premix Bag 1 BAG IV ONE ×2 (01:30→09:30)
[2017-08-26] MEDS: Sodium Chloride 0.9% 1,000 ML IV SCH ×3 (01:59→20:02)
--- NOTE | 2017-08-26 07:43 | PCM.PN ---
- General Info Date of Service: 08/26/17 Admission Dx/Problem (Free Text): Admission Diagnosis/Problem Admission Diagnosis/Problem Cirrhosis of liver with ascites Subjective Update: Follow Up Functional Status: Reports: Pain Controlled, Tolerating Diet, Ambulating, Urinating. Denies: New Symptoms - Review of Systems General: Denies: Fever, Weakness, Fatigue, Malaise, Chills HEENT: Reports: No Symptoms Pulmonary: Denies: Shortness of Breath, Pleuritic Chest Pain, Wheezing Cardiovascular: Denies: Chest Pain, Palpitations, Dyspnea on Exertion, Orthopnea , Edema, Lightheadedness Gastrointestinal: Reports: Other (Abdominal Distention). Denies: Abdominal Pain , Nausea, Vomiting Genitourinary: Reports: Frequency Musculoskeletal: Reports: No Symptoms Skin: Reports: Jaundice. Denies: Cyanosis, Mottled, Pallor, Diaphoresis, Pruritis, Rash Neurological: Denies: Confusion, Dizziness, Headache, Numbness, Seizure, Syncope , Tingling, Tremors, Trouble Speaking, Difficulty Walking, Weakness, Change in Speech, Gait Disturbance Psychiatric: Denies: Confusion, Depression, Anxiety, Agitation, Cravings, Hallucinations Systems Review Comment:: No overnight or acute issues. He feels better this AM. His INR is now at 1.96 from 2.09. His K is 2.7, Mg is 1.6. His total bilirubin is up from 8.4 to 9.1. His vitals are stable. He has no new complaints. - Patient Data Vitals - Most Recent: Last Vital Signs Temp 37.5 C 08/25/17 22:58 Pulse 95 08/26/17 01:43 Resp 18 08/26/17 01:43 BP 112/67 08/26/17 01:45 Pulse Ox 93 L 08/26/17 01:43 Weight - Most Recent: 117.707 kg I&O - Last 24 Hours: Intake & Output 08/25/17 08/26/17 08/26/17 22:59 06:59 14:59 Intake Total 1040 Output Total 400 Balance 640 Lab Results Last 24 Hours: Laboratory Results - last 24 hr 08/25/17 08/25/17 08/25/17 Range/Units 15:50 15:50 16:25 WBC (4.23-9.07) K/mm3 RBC (4.63-6.08) M/mm3 Hgb (13.7-17.5) gm/L Hct (40.1-51.0) % MCV (79.0-92.2) fl MCH (25.7-32.2) pg MCHC (32.2-35.5) g/dl RDW Std Deviation (35.1-43.9) fL Plt Count (163-337) K/mm3 MPV (9.4-12.3) fl Neut % (Auto) (34.0-67.9) % Lymph % (Auto) (21.8-53.1) % [place] % (Auto) (5.3-12.2) % Eos % (Auto) (0.8-7.0) Baso % (Auto) (0.1-1.2) % Neut # (Auto) (1.78-5.38) K/mm3 Lymph # (Auto) (1.32-3.57) K/mm3 [place] # (Auto) (0.30-0.82) K/mm3 Eos # (Auto) (0.04-0.54) K/mm3 Baso # (Auto) (0.01-0.08) K/mm3 Manual Slide Review PT (9.5-12.1) SECONDS INR Sodium (136-145) mEq/L Potassium (3.5-5.1) mEq/L Chloride (98-107) mEq/L Carbon Dioxide (21-32) mEq/L Anion Gap (5-15) BUN (7-18) mg/dL Creatinine (0.7-1.3) mg/dL Est Cr Clr Drug Dosing mL/min Estimated GFR (MDRD) (>60) mL/min BUN/Creatinine Ratio (14-18) Glucose (74-106) mg/dL Calcium (8.5-10.1) mg/dL Magnesium (1.8-2.4) mg/dl Total Bilirubin (0.2-1.0) mg/dL Direct Bilirubin 4.50 H (0.0-0.2) mg/dl GGT 286 H (15-85) U/L AST (15-37) U/L ALT (16-63) U/L Alkaline Phosphatase (46-116) U/L Ammonia (11-32) umol/L Lactate Dehydrogenase (85-227) U/L C-Reactive Protein (<1.0) mg/dL Total Protein (6.4-8.2) g/dl Albumin (3.4-5.0) g/dl Globulin gm/dL Albumin/Globulin Ratio (1-2) Urine Color [place] H (Yellow) Urine Appearance Clear (Clear) Urine pH 7.0 (5.0-8.0) Ur Specific [place] 1.020 (1.005-1.030) Urine Protein 1+ H (Negative) Urine Glucose (UA) Trace H (Negative) Urine Ketones Trace H (Negative) Urine Occult Blood Negative (Negative) Urine Nitrite Positive H (Negative) Urine Bilirubin 3+ H (Negative) Urine Urobilinogen >=8.0 H (0.2-1.0) Ur Leukocyte Esterase Negative (Negative) Urine RBC 0-5 (0-5) /hpf Urine WBC 0-5 (0-5) /hpf Ur Epithelial Cells 0-5 (0-5) /hpf Amorphous Sediment Few H (NOT SEEN) /hpf Urine Bacteria Moderate H (FEW) /hpf Hyaline Casts 0-5 (0-5) /lpf Urine Mucus Moderate H (FEW) /hpf Urine Opiates Screen (NEGATIVE) Ur Buprenorphine Scrn (NEGATIVE) Ur Oxycodone Screen (NEGATIVE) Urine Methadone Screen (NEGATIVE) Ur Propoxyphene Screen (NEGATIVE) Acetaminophen 0 L (10-30) ug/mL Ur Barbiturates Screen (NEGATIVE) Ur Tricyclics Screen (NEGATIVE) Ur Phencyclidine Scrn (NEGATIVE) Ur Amphetamine Screen (NEGATIVE) U Methamphetamines Scrn (NEGATIVE) U Benzodiazepines Scrn (NEGATIVE) U Cocaine Metab Screen (NEGATIVE) U Marijuana (THC) Screen (NEGATIVE) Ethyl Alcohol 0.00 (0.00) gm% C.difficile 027-NAP1-B1 C. difficile Tox (PCR) 08/25/17 08/25/17 08/25/17 Range/Units 16:30 16:30 18:27 WBC (4.23-9.07) K/mm3 RBC (4.63-6.08) M/mm3 Hgb (13.7-17.5) gm/L Hct (40.1-51.0) % MCV (79.0-92.2) fl MCH (25.7-32.2) pg MCHC (32.2-35.5) g/dl RDW Std Deviation (35.1-43.9) fL Plt Count (163-337) K/mm3 MPV (9.4-12.3) fl Neut % (Auto) (34.0-67.9) % Lymph % (Auto) (21.8-53.1) % [place] % (Auto) (5.3-12.2) % Eos % (Auto) (0.8-7.0) Baso % (Auto) (0.1-1.2) % Neut # (Auto) (1.78-5.38) K/mm3 Lymph # (Auto) (1.32-3.57) K/mm3 [place] # (Auto) (0.30-0.82) K/mm3 Eos # (Auto) (0.04-0.54) K/mm3 Baso # (Auto) (0.01-0.08) K/mm3 Manual Slide Review PT 22.5 H (9.5-12.1) SECONDS INR 2.09 Sodium (136-145) mEq/L Potassium (3.5-5.1) mEq/L Chloride (98-107) mEq/L Carbon Dioxide (21-32) mEq/L Anion Gap (5-15) BUN (7-18) mg/dL Creatinine (0.7-1.3) mg/dL Est Cr Clr Drug Dosing mL/min Estimated GFR (MDRD) (>60) mL/min BUN/Creatinine Ratio (14-18) Glucose (74-106) mg/dL Calcium (8.5-10.1) mg/dL Magnesium 1.0 L (1.8-2.4) mg/dl Total Bilirubin (0.2-1.0) mg/dL Direct Bilirubin (0.0-0.2) mg/dl GGT (15-85) U/L AST (15-37) U/L ALT (16-63) U/L Alkaline Phosphatase (46-116) U/L Ammonia (11-32) umol/L Lactate Dehydrogenase (85-227) U/L C-Reactive Protein (<1.0) mg/dL Total Protein (6.4-8.2) g/dl Albumin (3.4-5.0) g/dl Globulin gm/dL Albumin/Globulin Ratio (1-2) Urine Color (Yellow) Urine Appearance (Clear) Urine pH (5.0-8.0) Ur Specific [place] (1.005-1.030) Urine Protein (Negative) Urine Glucose (UA) (Negative) Urine Ketones (Negative) Urine Occult Blood (Negative) Urine Nitrite (Negative) Urine Bilirubin (Negative) Urine Urobilinogen (0.2-1.0) Ur Leukocyte Esterase (Negative) Urine RBC (0-5) /hpf Urine WBC (0-5) /hpf Ur Epithelial Cells (0-5) /hpf Amorphous Sediment (NOT SEEN) /hpf Urine Bacteria (FEW) /hpf Hyaline Casts (0-5) /lpf Urine Mucus (FEW) /hpf Urine Opiates Screen Negative (NEGATIVE) Ur Buprenorphine Scrn Negative (NEGATIVE) Ur Oxycodone Screen Negative (NEGATIVE) Urine Methadone Screen Negative (NEGATIVE) Ur Propoxyphene Screen Negative (NEGATIVE) Acetaminophen (10-30) ug/mL Ur Barbiturates Screen Negative (NEGATIVE) Ur Tricyclics Screen Negative (NEGATIVE) Ur Phencyclidine Scrn Negative (NEGATIVE) Ur Amphetamine Screen Negative (NEGATIVE) U Methamphetamines Scrn Negative (NEGATIVE) U Benzodiazepines Scrn Negative (NEGATIVE) U Cocaine Metab Screen Negative (NEGATIVE) U Marijuana (THC) Screen Negative (NEGATIVE) Ethyl Alcohol (0.00) gm% C.difficile 027-NAP1-B1 C. difficile Tox (PCR) 08/25/17 08/25/17 08/25/17 Range/Units 21:20 23:25 23:25 WBC (4.23-9.07) K/mm3 RBC (4.63-6.08) M/mm3 Hgb (13.7-17.5) gm/L Hct (40.1-51.0) % MCV (79.0-92.2) fl MCH (25.7-32.2) pg MCHC (32.2-35.5) g/dl RDW Std Deviation (35.1-43.9) fL Plt Count (163-337) K/mm3 MPV (9.4-12.3) fl Neut % (Auto) (34.0-67.9) % Lymph % (Auto) (21.8-53.1) % [place] % (Auto) (5.3-12.2) % Eos % (Auto) (0.8-7.0) Baso % (Auto) (0.1-1.2) % Neut # (Auto) (1.78-5.38) K/mm3 Lymph # (Auto) (1.32-3.57) K/mm3 [place] # (Auto) (0.30-0.82) K/mm3 Eos # (Auto) (0.04-0.54) K/mm3 Baso # (Auto) (0.01-0.08) K/mm3 Manual Slide Review PT (9.5-12.1) SECONDS INR Sodium (136-145) mEq/L Potassium (3.5-5.1) mEq/L Chloride (98-107) mEq/L Carbon Dioxide (21-32) mEq/L Anion Gap (5-15) BUN (7-18) mg/dL Creatinine (0.7-1.3) mg/dL Est Cr Clr Drug Dosing mL/min Estimated GFR (MDRD) (>60) mL/min BUN/Creatinine Ratio (14-18) Glucose (74-106) mg/dL Calcium (8.5-10.1) mg/dL Magnesium (1.8-2.4) mg/dl Total Bilirubin 8.4 H (0.2-1.0) mg/dL Direct Bilirubin (0.0-0.2) mg/dl GGT (15-85) U/L AST (15-37) U/L ALT (16-63) U/L Alkaline Phosphatase (46-116) U/L Ammonia 29 (11-32) umol/L Lactate Dehydrogenase (85-227) U/L C-Reactive Protein (<1.0) mg/dL Total Protein (6.4-8.2) g/dl Albumin (3.4-5.0) g/dl Globulin gm/dL Albumin/Globulin Ratio (1-2) Urine Color (Yellow) Urine Appearance (Clear) Urine pH (5.0-8.0) Ur Specific [place] (1.005-1.030) Urine Protein (Negative) Urine Glucose (UA) (Negative) Urine Ketones (Negative) Urine Occult Blood (Negative) Urine Nitrite (Negative) Urine Bilirubin (Negative) Urine Urobilinogen (0.2-1.0) Ur Leukocyte Esterase (Negative) Urine RBC (0-5) /hpf Urine WBC (0-5) /hpf Ur Epithelial Cells (0-5) /hpf Amorphous Sediment (NOT SEEN) /hpf Urine Bacteria (FEW) /hpf Hyaline Casts (0-5) /lpf Urine Mucus (FEW) /hpf Urine Opiates Screen (NEGATIVE) Ur Buprenorphine Scrn (NEGATIVE) Ur Oxycodone Screen (NEGATIVE) Urine Methadone Screen (NEGATIVE) Ur Propoxyphene Screen (NEGATIVE) Acetaminophen (10-30) ug/mL Ur Barbiturates Screen (NEGATIVE) Ur Tricyclics Screen (NEGATIVE) Ur Phencyclidine Scrn (NEGATIVE) Ur Amphetamine Screen (NEGATIVE) U Methamphetamines Scrn (NEGATIVE) U Benzodiazepines Scrn (NEGATIVE) U Cocaine Metab Screen (NEGATIVE) U Marijuana (THC) Screen (NEGATIVE) Ethyl Alcohol (0.00) gm% C.difficile 027-NAP1-B1 Presumptive negative C. difficile Tox (PCR) Positive H 08/25/17 08/26/17 08/26/17 Range/Units 23:25 06:04 06:04 WBC 4.82 (4.23-9.07) K/mm3 RBC 3.71 L (4.63-6.08) M/mm3 Hgb 12.9 L (13.7-17.5) gm/L Hct 36.7 L (40.1-51.0) % MCV 98.9 H (79.0-92.2) fl MCH 34.8 H (25.7-32.2) pg MCHC 35.1 (32.2-35.5) g/dl RDW Std Deviation 68.5 H (35.1-43.9) fL Plt Count 39 L (163-337) K/mm3 MPV 11.5 (9.4-12.3) fl Neut % (Auto) 72.6 H (34.0-67.9) % Lymph % (Auto) 12.9 L (21.8-53.1) % [place] % (Auto) 14.1 H (5.3-12.2) % Eos % (Auto) 0 L (0.8-7.0) Baso % (Auto) 0.2 (0.1-1.2) % Neut # (Auto) 3.50 (1.78-5.38) K/mm3 Lymph # (Auto) 0.62 L (1.32-3.57) K/mm3 [place] # (Auto) 0.68 (0.30-0.82) K/mm3 Eos # (Auto) 0.00 L (0.04-0.54) K/mm3 Baso # (Auto) 0.01 (0.01-0.08) K/mm3 Manual Slide Review Abnormal smear PT (9.5-12.1) SECONDS INR Sodium 132 L (136-145) mEq/L Potassium 2.7 L (3.5-5.1) mEq/L Chloride 98 (98-107) mEq/L Carbon Dioxide 27 (21-32) mEq/L Anion Gap 9.7 (5-15) BUN 8 (7-18) mg/dL Creatinine 0.9 (0.7-1.3) mg/dL Est Cr Clr Drug Dosing 97.61 mL/min Estimated GFR (MDRD) > 60 (>60) mL/min BUN/Creatinine Ratio 8.9 L (14-18) Glucose 105 (74-106) mg/dL Calcium 7.3 L (8.5-10.1) mg/dL Magnesium 1.6 L (1.8-2.4) mg/dl Total Bilirubin 9.1 H (0.2-1.0) mg/dL Direct Bilirubin (0.0-0.2) mg/dl GGT (15-85) U/L AST 229 H (15-37) U/L ALT 59 (16-63) U/L Alkaline Phosphatase 117 H (46-116) U/L Ammonia (11-32) umol/L Lactate Dehydrogenase 386 H (85-227) U/L C-Reactive Protein 4.0 H* (<1.0) mg/dL Total Protein 6.6 (6.4-8.2) g/dl Albumin 2.2 L (3.4-5.0) g/dl Globulin 4.4 gm/dL Albumin/Globulin Ratio 0.5 L (1-2) Urine Color (Yellow) Urine Appearance (Clear) Urine pH (5.0-8.0) Ur Specific [place] (1.005-1.030) Urine Protein (Negative) Urine Glucose (UA) (Negative) Urine Ketones (Negative) Urine Occult Blood (Negative) Urine Nitrite (Negative) Urine Bilirubin (Negative) Urine Urobilinogen (0.2-1.0) Ur Leukocyte Esterase (Negative) Urine RBC (0-5) /hpf Urine WBC (0-5) /hpf Ur Epithelial Cells (0-5) /hpf Amorphous Sediment (NOT SEEN) /hpf Urine Bacteria (FEW) /hpf Hyaline Casts (0-5) /lpf Urine Mucus (FEW) /hpf Urine Opiates Screen (NEGATIVE) Ur Buprenorphine Scrn (NEGATIVE) Ur Oxycodone Screen (NEGATIVE) Urine Methadone Screen (NEGATIVE) Ur Propoxyphene Screen (NEGATIVE) Acetaminophen (10-30) ug/mL Ur Barbiturates Screen (NEGATIVE) Ur Tricyclics Screen (NEGATIVE) Ur Phencyclidine Scrn (NEGATIVE) Ur Amphetamine Screen (NEGATIVE) U Methamphetamines Scrn (NEGATIVE) U Benzodiazepines Scrn (NEGATIVE) U Cocaine Metab Screen (NEGATIVE) U Marijuana (THC) Screen (NEGATIVE) Ethyl Alcohol (0.00) gm% C.difficile 027-NAP1-B1 C. difficile Tox (PCR) 08/26/17 Range/Units 06:04 WBC (4.23-9.07) K/mm3 RBC (4.63-6.08) M/mm3 Hgb (13.7-17.5) gm/L Hct (40.1-51.0) % MCV (79.0-92.2) fl MCH (25.7-32.2) pg MCHC (32.2-35.5) g/dl RDW Std Deviation (35.1-43.9) fL Plt Count (163-337) K/mm3 MPV (9.4-12.3) fl Neut % (Auto) (34.0-67.9) % Lymph % (Auto) (21.8-53.1) % [place] % (Auto) (5.3-12.2) % Eos % (Auto) (0.8-7.0) Baso % (Auto) (0.1-1.2) % Neut # (Auto) (1.78-5.38) K/mm3 Lymph # (Auto) (1.32-3.57) K/mm3 [place] # (Auto) (0.30-0.82) K/mm3 Eos # (Auto) (0.04-0.54) K/mm3 Baso # (Auto) (0.01-0.08) K/mm3 Manual Slide Review PT 21.1 H (9.5-12.1) SECONDS INR 1.96 Sodium (136-145) mEq/L Potassium (3.5-5.1) mEq/L Chloride (98-107) mEq/L Carbon Dioxide (21-32) mEq/L Anion Gap (5-15) BUN (7-18) mg/dL Creatinine (0.7-1.3) mg/dL Est Cr Clr Drug Dosing mL/min Estimated GFR (MDRD) (>60) mL/min BUN/Creatinine Ratio (14-18) Glucose (74-106) mg/dL Calcium (8.5-10.1) mg/dL Magnesium (1.8-2.4) mg/dl Total Bilirubin (0.2-1.0) mg/dL Direct Bilirubin (0.0-0.2) mg/dl GGT (15-85) U/L AST (15-37) U/L ALT (16-63) U/L Alkaline Phosphatase (46-116) U/L Ammonia (11-32) umol/L Lactate Dehydrogenase (85-227) U/L C-Reactive Protein (<1.0) mg/dL Total Protein (6.4-8.2) g/dl Albumin (3.4-5.0) g/dl Globulin gm/dL Albumin/Globulin Ratio (1-2) Urine Color (Yellow) Urine Appearance (Clear) Urine pH (5.0-8.0) Ur Specific [place] (1.005-1.030) Urine Protein (Negative) Urine Glucose (UA) (Negative) Urine Ketones (Negative) Urine Occult Blood (Negative) Urine Nitrite (Negative) Urine Bilirubin (Negative) Urine Urobilinogen (0.2-1.0) Ur Leukocyte Esterase (Negative) Urine RBC (0-5) /hpf Urine WBC (0-5) /hpf Ur Epithelial Cells (0-5) /hpf Amorphous Sediment (NOT SEEN) /hpf Urine Bacteria (FEW) /hpf Hyaline Casts (0-5) /lpf Urine Mucus (FEW) /hpf Urine Opiates Screen (NEGATIVE) Ur Buprenorphine Scrn (NEGATIVE) Ur Oxycodone Screen (NEGATIVE) Urine Methadone Screen (NEGATIVE) Ur Propoxyphene Screen (NEGATIVE) Acetaminophen (10-30) ug/mL Ur Barbiturates Screen (NEGATIVE) Ur Tricyclics Screen (NEGATIVE) Ur Phencyclidine Scrn (NEGATIVE) Ur Amphetamine Screen (NEGATIVE) U Methamphetamines Scrn (NEGATIVE) U Benzodiazepines Scrn (NEGATIVE) U Cocaine Metab Screen (NEGATIVE) U Marijuana (THC) Screen (NEGATIVE) Ethyl Alcohol (0.00) gm% C.difficile 027-NAP1-B1 C. difficile Tox (PCR) Scott Results Last 24 Hours: Microbiology 08/25/17 21:20 Stool for WBCs - Final Stool / Feces 08/25/17 21:20 Stool Occult Blood (SCOTT) - Final Stool / Feces Med Orders - Current: Current Medications Acetaminophen (Tylenol) 650 mg PO Q4H PRN PRN Reason: Pain (Mild 1-3)/fever Albuterol/Ipratropium (Duoneb 3.0-0.5 Mg/3 Ml) 3 ml NEB Q4H PRN PRN Reason: Shortness Of Breath/wheezing Captopril (Capoten) 12.5 mg PO Q8H [facility] Last Admin: 08/26/17 01:45 Dose: 12.5 mg Chlordiazepoxide HCl (Librium) 25 mg PO Q8H PRN PRN Reason: Withdrawal Symptoms Clonidine HCl (Catapres) 0.1 mg PO Q4H PRN PRN Reason: Agitation Famotidine (Pepcid) 20 mg IVPUSH BID [facility] Fenofibrate (Fenofibrate) 54 mg PO DAILY [facility] Fish Oil (Fish Oil) 1 gm PO DAILY [facility] Folic Acid (Folic Acid) 1 mg PO BEDTIME [facility] Haloperidol Lactate (Haldol) 2 mg IM Q4H PRN PRN Reason: Agitation Hydralazine HCl (Apresoline) 20 mg IVPUSH Q4H PRN PRN Reason: Hypertension Sodium Chloride (Normal Saline) 1,000 mls @ 125 mls/hr IV ASDIRECTED [facility] Last Admin: 08/26/17 01:59 Dose: 125 mls/hr Promethazine HCl 12.5 mg/ (Sodium Chloride) 50.5 mls @ 100 mls/hr IV Q6H PRN PRN Reason: Nausea/Vomiting Lactulose (Cephulac) 20 gm PO BID PRN PRN Reason: Constipation Lorazepam (Ativan) 2 mg IVPUSH Q4H PRN PRN Reason: Seizures Lorazepam (Ativan) 1 mg IV Q6H PRN PRN Reason: Anxiety Lorazepam (Ativan) 0 mg IVPUSH Q4H PRN; Protocol PRN Reason: Withdrawal Symptoms Magnesium Sulfate (Pharmacy To Dose - Magnesium Replacement) 1 dose .XX ASDIRECTED [facility] Metoprolol Tartrate (Lopressor) 5 mg IVPUSH Q4H PRN PRN Reason: Tachycardia Morphine Sulfate (Morphine) 1 mg IVPUSH Q4H PRN PRN Reason: Pain (severe 7-10) Stop: 08/30/17 22:43 Multivitamins (Thera) 1 each PO BEDTIME [facility] Nicotine (Habitrol) 21 mg TRDERM DAILY PRN PRN Reason: Nicotine Ondansetron HCl (Zofran) 4 mg IV Q6H PRN PRN Reason: Nausea/Vomiting Oxycodone HCl (Oxycodone) 10 mg PO Q4H PRN PRN Reason: Pain (moderate 4-6) Phytonadione (Aquamephyton) 5 mg SUBCUT DAILY [facility] Stop: 08/28/17 09:01 Potassium Chloride (Pharmacy To Dose - Potassium Replacement) 1 dose .XX ASDIRECTED [facility] Sodium Chloride (Saline Flush) 10 ml FLUSH ASDIRECTED PRN PRN Reason: Keep Vein Open Last Admin: 08/25/17 17:15 Dose: 10 ml Spironolactone (Aldactone) 50 mg PO BID [facility] Temazepam (Restoril) 15 mg PO BEDTIME PRN PRN Reason: Sleep Thiamine HCl (Vitamin B-1) 100 mg PO BEDTIME [facility] Torsemide (Demadex) 20 mg PO DAILY [facility] Vancomycin HCl (First-Vancomycin 50 Compounding Kit) 125 mg PO QID [facility] Discontinued Medications Diatrizoate Meglum/Diatrizoate Sod (Gastrografin 37%) 120 ml PO ONETIME ONE Stop: 08/25/17 19:16 Last Admin: 08/25/17 19:38 Dose: 90 ml Folic Acid (Folic Acid) 1 mg PO ONETIME ONE Stop: 08/25/17 16:10 Last Admin: 08/25/17 17:24 Dose: 1 mg Thiamine HCl 100 mg/ Sodium (Chloride) 11 mls @ 200 mls/hr IV ONETIME ONE Stop: 08/25/17 16:12 Last Admin: 08/25/17 17:18 Dose: Not Given Magnesium Sulfate 2 gm/ Premix 50 mls @ 25 mls/hr IV ONETIME ONE Stop: 08/25/17 18:14 Last Admin: 08/25/17 17:15 Dose: 25 mls/hr Potassium Chloride 10 meq/ (Premix) 100 mls @ 100 mls/hr IV ONETIME ONE Stop: 08/25/17 17:14 Last Admin: 08/25/17 17:12 Dose: 100 mls/hr Potassium Chloride 10 meq/ (Premix) 100 mls @ 100 mls/hr IV ONETIME ONE Stop: 08/25/17 17:14 Last Admin: 08/25/17 18:31 Dose: 100 mls/hr Thiamine HCl 100 mg/ Sodium (Chloride) 101 mls @ 202 mls/hr IV ONETIME ONE Stop: 08/25/17 17:15 Last Admin: 08/25/17 17:17 Dose: 202 mls/hr Magnesium Sulfate 2 gm/ Premix 50 mls @ 25 mls/hr IV ONETIME ONE Stop: 08/26/17 01:14 Last Admin: 08/26/17 01:43 Dose: Not Given Magnesium Sulfate 2 gm/ Premix 50 mls @ 25 mls/hr IV ONETIME ONE Stop: 08/26/17 03:29 Last Admin: 08/26/17 01:46 Dose: 25 mls/hr Iopamidol (Isovue-300 (61%)) 150 ml IVPUSH ONETIME ONE Stop: 08/25/17 19:16 Last Admin: 08/25/17 19:39 Dose: 150 ml Magnesium Oxide (Magnesium Oxide) 400 mg PO ONETIME ONE Stop: 08/25/17 16:10 Last Admin: 08/25/17 17:24 Dose: 400 mg Pantoprazole Sodium (Protonix Iv) 40 mg IV Q12HR GIANFRANCO Phytonadione (Aquamephyton) 5 mg SUBCUT ONETIME ONE Stop: 08/25/17 23:05 Last Admin: 08/26/17 01:42 Dose: Not Given Phytonadione (Aquamephyton) 5 mg SUBCUT ONETIME ONE Stop: 08/26/17 01:31 Last Admin: 08/26/17 01:44 Dose: 5 mg Sodium Chloride (Saline Flush) 10 ml FLUSH ONETIME PRN PRN Reason: IV FLUSH Last Admin: 08/25/17 19:39 Dose: 10 ml - Exam General: Alert, Oriented, Cooperative, No Acute Distress, Other (Obese and icterus sclerae) HEENT: Pupils Equal, Pupils Reactive, EOMI, Mucous Membr. Moist/[place] Neck: Supple, Trachea Midline, No JVD, No Thyromegaly Lungs: Normal Respiratory Effort, Decreased Breath Sounds Cardiovascular: Regular Rate, Regular Rhythm GI/Abdominal Exam: Normal Bowel Sounds, Soft, Non-Tender, Distended, Guarding, Rigid, Rebound, Hepatomegaly, Splenomegaly, Other (Caput Medusae on Abdomen) (Male) Exam: Deferred Back Exam: Decreased Range of Motion Extremities: Normal Range of Motion, Non-Tender, Other (Mild bilateral lower extremity edema ). No: Leg Pain, Increased Warmth, Mottled, Redness Skin: Warm, Dry, Intact, Other (Spider angiomata on lower extremity; palmar erythema) Neurological: No New Focal Deficit Psy/Mental Status: Alert, Normal Affect, Normal Mood - Problem List Review Problem List Initiated/Reviewed/Updated: Yes - My Orders Last 24 Hours: My Active Orders 08/25/17 22:39 LORazepam [Ativan] 2 mg IVPUSH Q4H PRN Metoprolol Tartrate [Lopressor] 5 mg IVPUSH Q4H PRN hydrALAZINE [Apresoline] 20 mg IVPUSH Q4H PRN 08/25/17 22:40 Ambulate [RC] ASDIRECTED Intake and Output [RC] 04,16 Oxygen Therapy [RC] PRN Up ad Siobhan [RC] ASDIRECTED VTE/DVT Education [RC] PER UNIT ROUTINE Vital Signs [RC] Q4H Acetaminophen [Tylenol] 650 mg PO Q4H PRN Morphine 1 mg IVPUSH Q4H PRN oxyCODONE 10 mg PO Q4H PRN Resuscitation Status Routine 08/25/17 22:42 Sequential Compression Device [OM.PC] Per Unit Routine 08/25/17 22:43 Albuterol/Ipratropium [DuoNeb 3.0-0.5 MG/3 ML] 3 ml NEB Q4H PRN LORazepam [Ativan] 1 mg IV Q6H PRN Ondansetron [Zofran] 4 mg IV Q6H PRN Promethazine [Phenergan] 12.5 mg Sodium Chloride 0.9% [Normal Saline] 50 ml IV Q6H Temazepam [Restoril] 15 mg PO BEDTIME PRN 08/25/17 22:44 RT Aerosol Therapy [RC] ASDIRECTED Consult to Case Management [CONS] Routine Consult to Wood Borer [CONS] Routine Consult to Physician [CONS] Routine Consult to Global Logistics Analyst [CONS] Routine Consult to Spiritual Care [CONS] Routine OT Evaluation and Treatment [CONS] Routine PT Evaluation and Treatment [CONS] Routine 08/25/17 22:45 Notify Provider Consults [RC] ASDIRECTED Magnesium Rep Pharmacy to Dose [Pharmacy to Dose - Magnesium Replacement] 1 dose .XX ASDIRECTED Potassium Rep Pharmacy to Dose [Pharmacy to Dose - Potassium Replacement] 1 dose .XX ASDIRECTED 08/25/17 23:08 Lactulose [Cephulac] 20 gm PO BID PRN 08/25/17 23:12 CIWAA Assessment [RC] Q15M CIWAA Assessment [RC] Q1HR CIWAA Assessment [RC] Q30M CIWAA Assessment [RC] Q4H Notify Provider [RC] PRN Haloperidol Lactate [Haldol] 2 mg IM Q4H PRN Nicotine [Habitrol] 21 mg TRDERM DAILY PRN chlordiazePOXIDE [Librium] 25 mg PO Q8H PRN cloNIDine [Catapres] 0.1 mg PO Q4H PRN Seizure Precautions [OM.PC] Routine 08/25/17 23:13 LORazepam [Ativan] See Protocol IVPUSH Q4H PRN 08/25/17 23:25 AFP, SERUM, TUMOR MARKER [REF] Stat 08/25/17 Dinner 2 Gram Sodium Diet [DIET] Fluid Restriction [DIET] 08/26/17 00:00 Captopril [Capoten] 12.5 mg PO Q8H 08/26/17 09:00 Famotidine [Pepcid] 20 mg IVPUSH BID Fenofibrate 54 mg PO DAILY Fish Oil/[place]-3 Fatty Acids [Fish Oil] 1 gm PO DAILY Phytonadione [AquaMephyton] 5 mg SUBCUT DAILY Spironolactone [Aldactone] 50 mg PO BID Torsemide [Demadex] 20 mg PO DAILY Vancomycin [First-Vancomycin 50 Compounding Kit] 125 mg PO QID 08/26/17 21:00 Folic Acid 1 mg PO BEDTIME Multivitamins,Therapeutic [Thera] 1 each PO BEDTIME Thiamine [Vitamin B-1] 100 mg PO BEDTIME 08/27/17 05:11 C-REACTIVE PROTEIN [CHEM] AM CBC WITH AUTO DIFF [HEME] AM COMPREHENSIVE METABOLIC PN,CMP [CHEM] AM INR,PT,PROTHROMBIN TIME [COAG] AM MAGNESIUM [CHEM] AM 08/28/17 05:11 C-REACTIVE PROTEIN [CHEM] AM CBC WITH AUTO DIFF [HEME] AM COMPREHENSIVE METABOLIC PN,CMP [CHEM] AM INR,PT,PROTHROMBIN TIME [COAG] AM MAGNESIUM [CHEM] AM 08/29/17 05:11 CBC WITH AUTO DIFF [HEME] AM COMPREHENSIVE METABOLIC PN,CMP [CHEM] AM MAGNESIUM [CHEM] AM 08/30/17 05:11 CBC WITH AUTO DIFF [HEME] AM COMPREHENSIVE METABOLIC PN,CMP [CHEM] AM MAGNESIUM [CHEM] AM - Plan Plan:: Assessment/Plan: Acute: Liver Cirrhosis/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 - Likely 2/2 ETOH Abuse - Carries a hx/o 15-20 of heavy alcoholic drinking - He drinks 3-4 shots of whiskey and sometimes with beers - CT scan report: Diffuse abnormal liver with multiple small nodular areas of poor enhancement--> biopsy is recommended (will be done outpatient) - Limit Tylenol to 3500/day and Advised to quit drinking - MELD Score 23 and Child-Duran Score 11 (Life Expectancy: 1-3 years with abdominal surgery raffaele-operative mortality of 82%) - Folic Acid, Thiamine and MVI Daily - Hepatitis Panel, Alpha fetoprotein and Alpha 1 anti-trypsin - Need liver biopsy for staging if he has HCC--> refer to GI in [place] Abdominal Ascites/Peripheral Edema and Portal HTN - 2/2 Above - Aldactone 25 mg po BID, Demadex 20 po daily, Capoten 12.5 mg po Q8H and Famotidine 20 mg IVP BID - CT scan: mild ascites--> no need for paracentesis at this time Splenomegaly - 2/2 Portal HTN - Treatment as above C. Diff Associated Diarrhea - New Onset - Continue Vancomycin 125 mg po QID fro 10 days - Isolation precaution Jaundice/Hyperbilirubinemia - 2/2 ETOH Liver Cirrhosis - R/o Viral Hepatitis - Hospital has no cholestyramine so we will use fenofibrate for now then switch him to it on discharge Hypomagnesemia - Mg 1.0--> 1.6 - 2/2 inadequate intake - Replete and monitor Elevated PT/INR - Vit K 5 mg IM for 3 days then d/c Thrombocytopenia - 2/2 Splenic Sequestration - Platelet of 29,000 from the clinic - Avoid ASA ETOH Abuse - [facility] Protocol - Ativan/Clonidin/Librium for Symptomatic control Chronic: EBER Back Pain ETOH Abuse Plan: He is clinically stable Routine AM Labs LDH elevated He needs zinc supplement on discharge Vit D level PT/OT Consider GS consult SW/CM for d/c planning GI eval outpatient after discharge Code status: 1
[2017-08-26] MEDS: Famotidine 20 MG/2 ML SDV IVPUSH SCH ×2 (08:22→20:03)
[2017-08-26] MEDS: Spironolactone 25 MG Tab PO SCH ×2 (08:23→20:03)
[2017-08-26] MEDS: Torsemide 20 MG Tab PO SCH (08:23)
[2017-08-26] MEDS: Fish Oil/Omega-3 Fatty Acids 1 Gm Cap PO SCH (08:23)
[2017-08-26] MEDS ORDERED: Pantoprazole 40 MG Vial IV SCH (09:00)
[2017-08-26] MEDS ORDERED: Fenofibrate 54 MG Tab PO SCH (09:00)
[2017-08-26] MEDS: Vancomycin 50 MG/ML 150ML Oral Solution Kit PO SCH ×4 (10:04→21:13)
[2017-08-26] MEDS: Potassium Chloride 20 MEQ Tab.ER PO SCH ×3 (10:05→17:25)
[2017-08-26] MEDS ORDERED: Cyclobenzaprine 10 MG Tab PO PRN (14:36)
[2017-08-26] MEDS: Folic Acid 1 MG Tab PO SCH (20:03)
[2017-08-26] MEDS: Thiamine 100 MG Tab PO SCH (20:03)
[2017-08-26] MEDS: Multivitamins,Therapeutic Tab PO SCH (20:03)
[2017-08-27] MEDS: Sodium Chloride 0.9% 1,000 ML IV SCH ×3 (04:18→22:37)
--- NOTE | 2017-08-27 07:04 | PCM.PN ---
- General Info Date of Service: 08/27/17 Admission Dx/Problem (Free Text): Admission Diagnosis/Problem Admission Diagnosis/Problem Cirrhosis of liver with ascites Subjective Update: Follow Up Functional Status: Reports: Pain Controlled, Tolerating Diet, Ambulating, Urinating, New Symptoms (on and off confusion) - Review of Systems General: Denies: Fever, Weakness, Fatigue, Malaise, Chills HEENT: Reports: No Symptoms. Denies: Ear Pain, Eye Pain Pulmonary: Denies: Shortness of Breath Cardiovascular: Denies: Chest Pain, Palpitations, Dyspnea on Exertion, Lightheadedness Gastrointestinal: Reports: Diarrhea. Denies: Abdominal Pain, Decreased Appetite , Nausea, Vomiting Genitourinary: Reports: Frequency Musculoskeletal: Reports: No Symptoms Skin: Reports: Jaundice. Denies: Pallor, Diaphoresis Neurological: Reports: Confusion. Denies: Dizziness, Seizure, Tremors, Trouble Speaking, Difficulty Walking, Weakness, Gait Disturbance Psychiatric: Denies: Depression, Anxiety, Agitation, Hallucinations Systems Review Comment:: He did not sleep well last night due to watery diarrhea. He also reports on and off confusion. His electrolytes are not fully improved. He remains afebrile w/o leukocytosis. No reports of bleeding or hematemesis. - Patient Data Vitals - Most Recent: Last Vital Signs Temp 37.1 C 08/27/17 04:16 Pulse 95 08/27/17 04:16 Resp 20 08/27/17 04:16 BP 125/79 08/27/17 04:16 Pulse Ox 93 L 08/27/17 04:16 Weight - Most Recent: 119.748 kg I&O - Last 24 Hours: Intake & Output 08/26/17 08/27/17 08/27/17 22:59 06:59 14:59 Intake Total 2136 Output Total 0 Balance 86 Lab Results Last 24 Hours: Laboratory Results - last 24 hr 08/26/17 08/27/17 Range/Units 06:04 06:25 WBC 4.12 L (4.23-9.07) K/mm3 RBC 3.43 L (4.63-6.08) M/mm3 Hgb 11.9 L (13.7-17.5) gm/L Hct 34.5 L (40.1-51.0) % MCV 100.6 H (79.0-92.2) fl MCH 34.7 H (25.7-32.2) pg MCHC 34.5 (32.2-35.5) g/dl RDW Std Deviation 69.0 H (35.1-43.9) fL Plt Count 35 L (163-337) K/mm3 MPV 10.9 (9.4-12.3) fl Neut % (Auto) 66.6 (34.0-67.9) % Lymph % (Auto) 14.6 L (21.8-53.1) % [place] % (Auto) 18.2 H (5.3-12.2) % Eos % (Auto) 0.2 L (0.8-7.0) Baso % (Auto) 0.2 (0.1-1.2) % Neut # (Auto) 2.74 (1.78-5.38) K/mm3 Lymph # (Auto) 0.60 L (1.32-3.57) K/mm3 [place] # (Auto) 0.75 (0.30-0.82) K/mm3 Eos # (Auto) 0.01 L (0.04-0.54) K/mm3 Baso # (Auto) 0.01 (0.01-0.08) K/mm3 Sodium 132 L (136-145) mEq/L Potassium 2.7 L (3.5-5.1) mEq/L Chloride 98 (98-107) mEq/L Carbon Dioxide 27 (21-32) mEq/L Anion Gap 9.7 (5-15) BUN 8 (7-18) mg/dL Creatinine 0.9 (0.7-1.3) mg/dL Est Cr Clr Drug Dosing 97.61 mL/min Estimated GFR (MDRD) > 60 (>60) mL/min BUN/Creatinine Ratio 8.9 L (14-18) Glucose 105 (74-106) mg/dL Calcium 7.3 L (8.5-10.1) mg/dL Magnesium 1.6 L (1.8-2.4) mg/dl Total Bilirubin 9.1 H (0.2-1.0) mg/dL AST 229 H (15-37) U/L ALT 59 (16-63) U/L Alkaline Phosphatase 117 H (46-116) U/L C-Reactive Protein 4.0 H* (<1.0) mg/dL Total Protein 6.6 (6.4-8.2) g/dl Albumin 2.2 L (3.4-5.0) g/dl Globulin 4.4 gm/dL Albumin/Globulin Ratio 0.5 L (1-2) Scott Results Last 24 Hours: Microbiology 08/25/17 21:20 Stool Culture - Preliminary Stool / Feces NORMAL ENTERIC JAMES 1 DAY - Final NEGATIVE FOR SHIGA TOXIN 1 - Final NEGATIVE FOR SHIGA TOXIN 2 Med Orders - Current: Current Medications Acetaminophen (Tylenol) 650 mg PO Q4H PRN PRN Reason: Pain (Mild 1-3)/fever Albuterol/Ipratropium (Duoneb 3.0-0.5 Mg/3 Ml) 3 ml NEB Q4H PRN PRN Reason: Shortness Of Breath/wheezing Captopril (Capoten) 12.5 mg PO Q8H [facility] Last Admin: 08/27/17 00:13 Dose: 12.5 mg Chlordiazepoxide HCl (Librium) 25 mg PO Q8H PRN PRN Reason: Withdrawal Symptoms Clonidine HCl (Catapres) 0.1 mg PO Q4H PRN PRN Reason: Agitation Cyclobenzaprine HCl (Flexeril) 10 mg PO TID PRN PRN Reason: Cramping Famotidine (Pepcid) 20 mg IVPUSH BID [facility] Last Admin: 08/26/17 20:03 Dose: 20 mg Fenofibrate (Tricor) 145 mg PO DAILY [facility] Fish Oil (Fish Oil) 1 gm PO DAILY [facility] Last Admin: 08/26/17 08:23 Dose: 1 gm Folic Acid (Folic Acid) 1 mg PO BEDTIME [facility] Last Admin: 08/26/17 20:03 Dose: 1 mg Haloperidol Lactate (Haldol) 2 mg IM Q4H PRN PRN Reason: Agitation Hydralazine HCl (Apresoline) 20 mg IVPUSH Q4H PRN PRN Reason: Hypertension Sodium Chloride (Normal Saline) 1,000 mls @ 125 mls/hr IV ASDIRECTED [facility] Last Admin: 08/27/17 04:18 Dose: 125 mls/hr Promethazine HCl 12.5 mg/ (Sodium Chloride) 50.5 mls @ 100 mls/hr IV Q6H PRN PRN Reason: Nausea/Vomiting Lactulose (Cephulac) 20 gm PO BID PRN PRN Reason: Constipation Lorazepam (Ativan) 2 mg IVPUSH Q4H PRN PRN Reason: Seizures Lorazepam (Ativan) 1 mg IV Q6H PRN PRN Reason: Anxiety Lorazepam (Ativan) 0 mg IVPUSH Q4H PRN; Protocol PRN Reason: Withdrawal Symptoms Magnesium Sulfate (Pharmacy To Dose - Magnesium Replacement) 1 dose .XX ASDIRECTED [facility] Metoprolol Tartrate (Lopressor) 5 mg IVPUSH Q4H PRN PRN Reason: Tachycardia Morphine Sulfate (Morphine) 1 mg IVPUSH Q4H PRN PRN Reason: Pain (severe 7-10) Stop: 08/30/17 22:43 Multivitamins (Thera) 1 each PO BEDTIME [facility] Last Admin: 08/26/17 20:03 Dose: 1 each Nicotine (Habitrol) 21 mg TRDERM DAILY PRN PRN Reason: Nicotine Ondansetron HCl (Zofran) 4 mg IV Q6H PRN PRN Reason: Nausea/Vomiting Oxycodone HCl (Oxycodone) 10 mg PO Q4H PRN PRN Reason: Pain (moderate 4-6) Last Admin: 08/26/17 10:37 Dose: 5 mg Phytonadione (Aquamephyton) 5 mg SUBCUT DAILY [facility] Stop: 08/28/17 09:01 Last Admin: 08/26/17 10:04 Dose: 5 mg Potassium Chloride (Pharmacy To Dose - Potassium Replacement) 1 dose .XX ASDIRECTED [facility] Sodium Chloride (Saline Flush) 10 ml FLUSH ASDIRECTED PRN PRN Reason: Keep Vein Open Last Admin: 08/25/17 17:15 Dose: 10 ml Spironolactone (Aldactone) 50 mg PO BID [facility] Last Admin: 08/26/17 20:03 Dose: 50 mg Thiamine HCl (Vitamin B-1) 100 mg PO BEDTIME [facility] Last Admin: 08/26/17 20:03 Dose: 100 mg Torsemide (Demadex) 20 mg PO DAILY [facility] Last Admin: 08/26/17 08:23 Dose: 20 mg Vancomycin HCl (First-Vancomycin 50 Compounding Kit) 125 mg PO QID [facility] Last Admin: 08/26/17 21:13 Dose: 125 mg Discontinued Medications Diatrizoate Meglum/Diatrizoate Sod (Gastrografin 37%) 120 ml PO ONETIME ONE Stop: 08/25/17 19:16 Last Admin: 08/25/17 19:38 Dose: 90 ml Fenofibrate (Fenofibrate) 54 mg PO DAILY [facility] Stop: 08/26/17 10:00 Last Admin: 08/26/17 10:32 Dose: Not Given Folic Acid (Folic Acid) 1 mg PO ONETIME ONE Stop: 08/25/17 16:10 Last Admin: 08/25/17 17:24 Dose: 1 mg Thiamine HCl 100 mg/ Sodium (Chloride) 11 mls @ 200 mls/hr IV ONETIME ONE Stop: 08/25/17 16:12 Last Admin: 08/25/17 17:18 Dose: Not Given Magnesium Sulfate 2 gm/ Premix 50 mls @ 25 mls/hr IV ONETIME ONE Stop: 08/25/17 18:14 Last Admin: 08/25/17 17:15 Dose: 25 mls/hr Potassium Chloride 10 meq/ (Premix) 100 mls @ 100 mls/hr IV ONETIME ONE Stop: 08/25/17 17:14 Last Admin: 08/25/17 17:12 Dose: 100 mls/hr Potassium Chloride 10 meq/ (Premix) 100 mls @ 100 mls/hr IV ONETIME ONE Stop: 08/25/17 17:14 Last Admin: 08/25/17 18:31 Dose: 100 mls/hr Thiamine HCl 100 mg/ Sodium (Chloride) 101 mls @ 202 mls/hr IV ONETIME ONE Stop: 08/25/17 17:15 Last Admin: 08/25/17 17:17 Dose: 202 mls/hr Magnesium Sulfate 2 gm/ Premix 50 mls @ 25 mls/hr IV ONETIME ONE Stop: 08/26/17 01:14 Last Admin: 08/26/17 01:43 Dose: Not Given Magnesium Sulfate 2 gm/ Premix 50 mls @ 25 mls/hr IV ONETIME ONE Stop: 08/26/17 03:29 Last Admin: 08/26/17 01:46 Dose: 25 mls/hr Magnesium Sulfate 2 gm/ Premix 50 mls @ 25 mls/hr IV ONETIME ONE Stop: 08/26/17 11:29 Last Admin: 08/26/17 10:05 Dose: 25 mls/hr Iopamidol (Isovue-300 (61%)) 150 ml IVPUSH ONETIME ONE Stop: 08/25/17 19:16 Last Admin: 08/25/17 19:39 Dose: 150 ml Magnesium Oxide (Magnesium Oxide) 400 mg PO ONETIME ONE Stop: 08/25/17 16:10 Last Admin: 08/25/17 17:24 Dose: 400 mg Pantoprazole Sodium (Protonix Iv) 40 mg IV Q12HR [facility] Phytonadione (Aquamephyton) 5 mg SUBCUT ONETIME ONE Stop: 08/25/17 23:05 Last Admin: 08/26/17 01:42 Dose: Not Given Phytonadione (Aquamephyton) 5 mg SUBCUT ONETIME ONE Stop: 08/26/17 01:31 Last Admin: 08/26/17 01:44 Dose: 5 mg Potassium Chloride (Klor-Con M20) 40 meq PO Q4H [facility] Stop: 08/26/17 17:31 Last Admin: 08/26/17 17:25 Dose: 40 meq Sodium Chloride (Saline Flush) 10 ml FLUSH ONETIME PRN PRN Reason: IV FLUSH Last Admin: 08/25/17 19:39 Dose: 10 ml Temazepam (Restoril) 15 mg PO BEDTIME PRN PRN Reason: Sleep - Exam General: Alert, Oriented, Cooperative, No Acute Distress, Other (Obese) HEENT: Pupils Equal, Pupils Reactive, EOMI, Mucous Membr. Moist/[place], Scleral Icterus Neck: Supple, Trachea Midline, No JVD, No Thyromegaly Lungs: Clear to Auscultation, Normal Respiratory Effort, Decreased Breath Sounds Cardiovascular: Regular Rate, Regular Rhythm GI/Abdominal Exam: Normal Bowel Sounds, Soft, Non-Tender, Distended, Hepatomegaly, Splenomegaly. No: Guarding, Rigid, Rebound (Male) Exam: Deferred Back Exam: Normal Inspection, Decreased Range of Motion Extremities: Normal Inspection, Normal Range of Motion, Non-Tender, No Pedal Edema, Normal Capillary Refill, Other (palmar erythema) Peripheral Pulses: 2+: Dorsalis Pedis (L), Dorsalis Pedis (R) Skin: Warm, Dry, Intact, Other (spider angiomata) Neurological: No New Focal Deficit, Normal Gait Psy/Mental Status: Alert, Normal Affect, Normal Mood - Problem List Review Problem List Initiated/Reviewed/Updated: Yes - My Orders Last 24 Hours: My Active Orders 08/26/17 06:25 VITAMIN D 25-HYROXY (D2, D3) [REF] Stat 08/26/17 09:00 Famotidine [Pepcid] 20 mg IVPUSH BID Fish Oil/[place]-3 Fatty Acids [Fish Oil] 1 gm PO DAILY Phytonadione [AquaMephyton] 5 mg SUBCUT DAILY Spironolactone [Aldactone] 50 mg PO BID Torsemide [Demadex] 20 mg PO DAILY Vancomycin [First-Vancomycin 50 Compounding Kit] 125 mg PO QID 08/26/17 14:36 Cyclobenzaprine [Flexeril] 10 mg PO TID PRN 08/26/17 21:00 Folic Acid 1 mg PO BEDTIME Multivitamins,Therapeutic [Thera] 1 each PO BEDTIME Thiamine [Vitamin B-1] 100 mg PO BEDTIME 08/27/17 06:25 C-REACTIVE PROTEIN [CHEM] AM CBC WITH AUTO DIFF [HEME] AM COMPREHENSIVE METABOLIC PN,CMP [CHEM] AM INR,PT,PROTHROMBIN TIME [COAG] AM MAGNESIUM [CHEM] AM 08/27/17 09:00 Fenofibrate Nanocrystallized [Tricor] 145 mg PO DAILY 08/28/17 05:11 C-REACTIVE PROTEIN [CHEM] AM CBC WITH AUTO DIFF [HEME] AM COMPREHENSIVE METABOLIC PN,CMP [CHEM] AM INR,PT,PROTHROMBIN TIME [COAG] AM MAGNESIUM [CHEM] AM 08/29/17 05:11 CBC WITH AUTO DIFF [HEME] AM COMPREHENSIVE METABOLIC PN,CMP [CHEM] AM MAGNESIUM [CHEM] AM 08/30/17 05:11 CBC WITH AUTO DIFF [HEME] AM COMPREHENSIVE METABOLIC PN,CMP [CHEM] AM MAGNESIUM [CHEM] AM - Plan Plan:: Assessment/Plan: Acute: End Stage Liver Disease (Decompensated) - Liver Cirrhosis/Child Class - Likely 2/2 ETOH Abuse - Carries a hx/o 15-20 of heavy alcoholic drinking - He drinks 3-4 shots of whiskey and sometimes with beers - CT scan report: Diffuse abnormal liver with multiple small nodular areas of poor enhancement--> biopsy is recommended (will be done outpatient) - Limit Tylenol to 3500/day and Advised to quit drinking - MELD Score 23 and Child-Duran Score 11 (Life Expectancy: 1-3 years with abdominal surgery raffaele-operative mortality of 82%) - Folic Acid, Thiamine and MVI Daily - Hepatitis Panel, Alpha fetoprotein and Alpha 1 anti-trypsin - Need liver biopsy for staging if he has HCC and Gold Standard for diagnosis --> refer to GI in [place] Abdominal Ascites/Peripheral Edema and Portal HTN - 2/2 Above - Aldactone 50 mg po BID, Demadex 20 mg po daily, Capoten 12.5 mg po Q8H and Famotidine 20 mg IVP BID - CT scan: mild ascites--> no need for paracentesis at this time Splenomegaly - 2/2 Portal HTN - Treatment as above C. Diff Associated Diarrhea - New Onset - Vancomycin 125 mg po QID for 10 days - Isolation precaution Jaundice/Hyperbilirubinemia, Worsening - 2/2 likely ETOH Liver Cirrhosis - R/o Viral Hepatitis - T. Bilirubin 8.4--> 9.1--> now 9.8 - Welchol BID and discontinue Fenobirate Hypomagnesemia - Mg 1.0--> 1.6--> 1.2 - 2/2 inadequate intake - Replete and monitor Hypokalemia - K 2.97--> 3.2 - 2/2 Renal and GI loss - Replete and monitor Elevated PT/INR - Vit K 5 mg IM for 3 days then d/c Thrombocytopenia - 2/2 Splenic Sequestration - Platelet of 29,000--> 35,000c - Avoid ASA ETOH Abuse - [facility] Protocol - Ativan/Clonidin/Librium for Symptomatic control Intermittent Confusion/Hepatic Encephalopathy - This maybe his knew baseline now with metabolic/drug encephalopathy - Also Total bilirubin continues to trend up now at 9.8 - Head CT scan w/o contrast for baseline - Ammonia level Chronic: EBER Back Pain ETOH Abuse Plan: He is clinically stable Routine AM Labs He needs zinc supplement on discharge Vit D level pending Continue PT/OT Avoid Benzo and Narcotics Consider GS consult SW/CM for d/c planning GI eval outpatient after discharge Code status: 1 Transfer to [place] if he does not improve
[2017-08-27] MEDS: Torsemide 20 MG Tab PO SCH (08:57)
[2017-08-27] MEDS: Fish Oil/Omega-3 Fatty Acids 1 Gm Cap PO SCH (08:57)
[2017-08-27] MEDS: Spironolactone 25 MG Tab PO SCH ×2 (08:58→20:54)
[2017-08-27] MEDS: Vancomycin 50 MG/ML 150ML Oral Solution Kit PO SCH ×4 (08:59→21:05)
[2017-08-27] MEDS ORDERED: Fenofibrate Nanocrystallized 145 MG Tab PO SCH (09:00)
[2017-08-27] MEDS: Famotidine 20 MG/2 ML SDV IVPUSH SCH (09:02)
[2017-08-27] MEDS: Potassium Chloride 20 MEQ Tab.ER PO SCH ×3 (10:30→17:11)
[2017-08-27] MEDS: Magnesium Sulfate/Water 2 GM in Premix Bag 1 BAG IV SCH ×2 (10:30→12:34)
[2017-08-27] MEDS: Lactulose Soln 10 GM/15 ML 30 ML UD Cup PO SCH ×2 (17:15→20:57)
[2017-08-27] MEDS ORDERED: Bumetanide 1 MG/4 ML MDV IVPUSH ONE (18:00)
--- NOTE | 2017-08-27 18:20 | PCM.CONSN ---
- General Info Date of Service: 08/27/17 - Patient Data Vitals - Most Recent: Last Vital Signs Temp 100.6 F 08/27/17 16:28 Pulse 102 H 08/27/17 16:28 Resp 16 08/27/17 16:28 BP 126/72 08/27/17 17:10 Pulse Ox 93 L 08/27/17 16:28 Weight - Most Recent: 119.748 kg I&O - Last 24 Hours: Intake & Output 08/27/17 08/27/17 08/27/17 07:59 15:59 23:59 Intake Total 1633 760 120 Output Total 2250 Balance -617 760 120 Lab Results Last 24 Hours: Laboratory Results - last 24 hr 08/27/17 08/27/17 08/27/17 Range/Units 06:25 06:25 06:25 WBC 4.12 L (4.23-9.07) K/mm3 RBC 3.43 L (4.63-6.08) M/mm3 Hgb 11.9 L (13.7-17.5) gm/L Hct 34.5 L (40.1-51.0) % MCV 100.6 H (79.0-92.2) fl MCH 34.7 H (25.7-32.2) pg MCHC 34.5 (32.2-35.5) g/dl RDW Std Deviation 69.0 H (35.1-43.9) fL Plt Count 35 L (163-337) K/mm3 MPV 10.9 (9.4-12.3) fl Neut % (Auto) 66.6 (34.0-67.9) % Lymph % (Auto) 14.6 L (21.8-53.1) % [place] % (Auto) 18.2 H (5.3-12.2) % Eos % (Auto) 0.2 L (0.8-7.0) Baso % (Auto) 0.2 (0.1-1.2) % Neut # (Auto) 2.74 (1.78-5.38) K/mm3 Lymph # (Auto) 0.60 L (1.32-3.57) K/mm3 [place] # (Auto) 0.75 (0.30-0.82) K/mm3 Eos # (Auto) 0.01 L (0.04-0.54) K/mm3 Baso # (Auto) 0.01 (0.01-0.08) K/mm3 Manual Slide Review Abnormal smear PT 21.5 H (9.5-12.1) SECONDS INR 2.00 Sodium 136 (136-145) mEq/L Potassium 3.2 L (3.5-5.1) mEq/L Chloride 100 (98-107) mEq/L Carbon Dioxide 29 (21-32) mEq/L Anion Gap 10.2 (5-15) BUN 9 (7-18) mg/dL Creatinine 0.8 (0.7-1.3) mg/dL Est Cr Clr Drug Dosing 109.81 mL/min Estimated GFR (MDRD) > 60 (>60) mL/min BUN/Creatinine Ratio 11.3 L (14-18) Glucose 101 (74-106) mg/dL Calcium 6.9 L (8.5-10.1) mg/dL Magnesium 1.2 L (1.8-2.4) mg/dl Total Bilirubin 9.8 H (0.2-1.0) mg/dL AST 188 H (15-37) U/L ALT 56 (16-63) U/L Alkaline Phosphatase 107 (46-116) U/L Ammonia (11-32) umol/L C-Reactive Protein 3.9 H* (<1.0) mg/dL Total Protein 6.2 L (6.4-8.2) g/dl Albumin 2.0 L (3.4-5.0) g/dl Globulin 4.2 gm/dL Albumin/Globulin Ratio 0.5 L (1-2) 18 Range/Units 15:50 WBC (4.23-9.07) K/mm3 RBC (4.63-6.08) M/mm3 Hgb (13.7-17.5) gm/L Hct (40.1-51.0) % MCV (79.0-92.2) fl MCH (25.7-32.2) pg MCHC (32.2-35.5) g/dl RDW Std Deviation (35.1-43.9) fL Plt Count (163-337) K/mm3 MPV (9.4-12.3) fl Neut % (Auto) (34.0-67.9) % Lymph % (Auto) (21.8-53.1) % [place] % (Auto) (5.3-12.2) % Eos % (Auto) (0.8-7.0) Baso % (Auto) (0.1-1.2) % Neut # (Auto) (1.78-5.38) K/mm3 Lymph # (Auto) (1.32-3.57) K/mm3 [place] # (Auto) (0.30-0.82) K/mm3 Eos # (Auto) (0.04-0.54) K/mm3 Baso # (Auto) (0.01-0.08) K/mm3 Manual Slide Review PT (9.5-12.1) SECONDS INR Sodium (136-145) mEq/L Potassium (3.5-5.1) mEq/L Chloride (98-107) mEq/L Carbon Dioxide (21-32) mEq/L Anion Gap (5-15) BUN (7-18) mg/dL Creatinine (0.7-1.3) mg/dL Est Cr Clr Drug Dosing mL/min Estimated GFR (MDRD) (>60) mL/min BUN/Creatinine Ratio (14-18) Glucose (74-106) mg/dL Calcium (8.5-10.1) mg/dL Magnesium (1.8-2.4) mg/dl Total Bilirubin (0.2-1.0) mg/dL AST (15-37) U/L ALT (16-63) U/L Alkaline Phosphatase (46-116) U/L Ammonia 21 (11-32) umol/L C-Reactive Protein (<1.0) mg/dL Total Protein (6.4-8.2) g/dl Albumin (3.4-5.0) g/dl Globulin gm/dL Albumin/Globulin Ratio (1-2) Scott Results Last 24 Hours: Microbiology 08/25/17 21:20 Stool Culture - Preliminary Stool / Feces - Final NEGATIVE FOR SHIGA TOXIN 1 - Final NEGATIVE FOR SHIGA TOXIN 2 Med Orders - Current: Current Medications Acetaminophen (Tylenol) 650 mg PO Q4H PRN PRN Reason: Pain (Mild 1-3)/fever Albuterol/Ipratropium (Duoneb 3.0-0.5 Mg/3 Ml) 3 ml NEB Q4H PRN PRN Reason: Shortness Of Breath/wheezing Calcium Carbonate/Glycine (Tums) 1,000 mg PO BID [facility] Captopril (Capoten) 12.5 mg PO Q8H [facility] Last Admin: 08/27/17 17:10 Dose: 12.5 mg Chlordiazepoxide HCl (Librium) 25 mg PO Q8H PRN PRN Reason: Withdrawal Symptoms Clonidine HCl (Catapres) 0.1 mg PO Q4H PRN PRN Reason: Agitation Colesevelam HCl (Welchol) 1,875 mg PO BID [facility] Cyclobenzaprine HCl (Flexeril) 10 mg PO TID PRN PRN Reason: Cramping Famotidine (Pepcid) 20 mg PO BID [facility] Fish Oil (Fish Oil) 1 gm PO DAILY [facility] Last Admin: 08/27/17 08:57 Dose: 1 gm Folic Acid (Folic Acid) 1 mg PO BEDTIME [facility] Last Admin: 08/26/17 20:03 Dose: 1 mg Haloperidol Lactate (Haldol) 2 mg IM Q4H PRN PRN Reason: Agitation Hydralazine HCl (Apresoline) 20 mg IVPUSH Q4H PRN PRN Reason: Hypertension Sodium Chloride (Normal Saline) 1,000 mls @ 125 mls/hr IV ASDIRECTED [facility] Last Admin: 08/27/17 12:38 Dose: 125 mls/hr Promethazine HCl 12.5 mg/ (Sodium Chloride) 50.5 mls @ 100 mls/hr IV Q6H PRN PRN Reason: Nausea/Vomiting Lactulose (Cephulac) 30 gm PO BID [facility] Last Admin: 08/27/17 17:15 Dose: 30 gm Lorazepam (Ativan) 2 mg IVPUSH Q4H PRN PRN Reason: Seizures Lorazepam (Ativan) 1 mg IV Q6H PRN PRN Reason: Anxiety Lorazepam (Ativan) 0 mg IVPUSH Q4H PRN; Protocol PRN Reason: Withdrawal Symptoms Magnesium Sulfate (Pharmacy To Dose - Magnesium Replacement) 1 dose .XX ASDIRECTED [facility] Metoprolol Tartrate (Lopressor) 5 mg IVPUSH Q4H PRN PRN Reason: Tachycardia Morphine Sulfate (Morphine) 1 mg IVPUSH Q4H PRN PRN Reason: Pain (severe 7-10) Stop: 08/30/17 22:43 Multivitamins (Thera) 1 each PO BEDTIME [facility] Last Admin: 08/26/17 20:03 Dose: 1 each Nicotine (Habitrol) 21 mg TRDERM DAILY PRN PRN Reason: Nicotine Ondansetron HCl (Zofran) 4 mg IV Q6H PRN PRN Reason: Nausea/Vomiting Phytonadione (Aquamephyton) 5 mg SUBCUT DAILY [facility] Stop: 08/28/17 09:01 Last Admin: 08/27/17 09:06 Dose: 5 mg Potassium Chloride (Pharmacy To Dose - Potassium Replacement) 1 dose .XX ASDIRECTED [facility] Sodium Chloride (Saline Flush) 10 ml FLUSH ASDIRECTED PRN PRN Reason: Keep Vein Open Last Admin: 08/25/17 17:15 Dose: 10 ml Spironolactone (Aldactone) 50 mg PO BID [facility] Last Admin: 08/27/17 08:58 Dose: 50 mg Thiamine HCl (Vitamin B-1) 100 mg PO BEDTIME [facility] Last Admin: 08/26/17 20:03 Dose: 100 mg Torsemide (Demadex) 20 mg PO DAILY [facility] Last Admin: 08/27/17 08:57 Dose: 20 mg Vancomycin HCl (First-Vancomycin 50 Compounding Kit) 125 mg PO QID [facility] Last Admin: 08/27/17 17:12 Dose: 125 mg Discontinued Medications Bumetanide (Bumex) 0.5 mg IVPUSH ONETIME ONE Stop: 08/27/17 18:01 Last Admin: 08/27/17 17:19 Dose: 0.5 mg Diatrizoate Meglum/Diatrizoate Sod (Gastrografin 37%) 120 ml PO ONETIME ONE Stop: 08/25/17 19:16 Last Admin: 08/25/17 19:38 Dose: 90 ml Famotidine (Pepcid) 20 mg IVPUSH BID [facility] Last Admin: 08/27/17 09:02 Dose: 20 mg Fenofibrate (Fenofibrate) 54 mg PO DAILY [facility] Stop: 08/26/17 10:00 Last Admin: 08/26/17 10:32 Dose: Not Given Fenofibrate (Tricor) 145 mg PO DAILY [facility] Last Admin: 08/27/17 08:58 Dose: 145 mg Folic Acid (Folic Acid) 1 mg PO ONETIME ONE Stop: 08/25/17 16:10 Last Admin: 08/25/17 17:24 Dose: 1 mg Thiamine HCl 100 mg/ Sodium (Chloride) 11 mls @ 200 mls/hr IV ONETIME ONE Stop: 08/25/17 16:12 Last Admin: 08/25/17 17:18 Dose: Not Given Magnesium Sulfate 2 gm/ Premix 50 mls @ 25 mls/hr IV ONETIME ONE Stop: 08/25/17 18:14 Last Admin: 08/25/17 17:15 Dose: 25 mls/hr Potassium Chloride 10 meq/ (Premix) 100 mls @ 100 mls/hr IV ONETIME ONE Stop: 08/25/17 17:14 Last Admin: 08/25/17 17:12 Dose: 100 mls/hr Potassium Chloride 10 meq/ (Premix) 100 mls @ 100 mls/hr IV ONETIME ONE Stop: 08/25/17 17:14 Last Admin: 08/25/17 18:31 Dose: 100 mls/hr Thiamine HCl 100 mg/ Sodium (Chloride) 101 mls @ 202 mls/hr IV ONETIME ONE Stop: 08/25/17 17:15 Last Admin: 08/25/17 17:17 Dose: 202 mls/hr Magnesium Sulfate 2 gm/ Premix 50 mls @ 25 mls/hr IV ONETIME ONE Stop: 08/26/17 01:14 Last Admin: 08/26/17 01:43 Dose: Not Given Magnesium Sulfate 2 gm/ Premix 50 mls @ 25 mls/hr IV ONETIME ONE Stop: 08/26/17 03:29 Last Admin: 08/26/17 01:46 Dose: 25 mls/hr Magnesium Sulfate 2 gm/ Premix 50 mls @ 25 mls/hr IV ONETIME ONE Stop: 08/26/17 11:29 Last Admin: 08/26/17 10:05 Dose: 25 mls/hr Magnesium Sulfate 2 gm/ Premix 50 mls @ 25 mls/hr IV Q2H [facility] Stop: 08/27/17 13:29 Last Admin: 08/27/17 12:34 Dose: 25 mls/hr Iopamidol (Isovue-300 (61%)) 150 ml IVPUSH ONETIME ONE Stop: 08/25/17 19:16 Last Admin: 08/25/17 19:39 Dose: 150 ml Lactulose (Cephulac) 20 gm PO BID PRN PRN Reason: Constipation Lactulose (Cephulac) 30 gm PO BID [facility] Magnesium Oxide (Magnesium Oxide) 400 mg PO ONETIME ONE Stop: 08/25/17 16:10 Last Admin: 08/25/17 17:24 Dose: 400 mg Oxycodone HCl (Oxycodone) 10 mg PO Q4H PRN PRN Reason: Pain (moderate 4-6) Last Admin: 08/26/17 10:37 Dose: 5 mg Pantoprazole Sodium (Protonix Iv) 40 mg IV Q12HR [facility] Phytonadione (Aquamephyton) 5 mg SUBCUT ONETIME ONE Stop: 08/25/17 23:05 Last Admin: 08/26/17 01:42 Dose: Not Given Phytonadione (Aquamephyton) 5 mg SUBCUT ONETIME ONE Stop: 08/26/17 01:31 Last Admin: 08/26/17 01:44 Dose: 5 mg Potassium Chloride (Klor-Con M20) 40 meq PO Q4H [facility] Stop: 08/26/17 17:31 Last Admin: 08/26/17 17:25 Dose: 40 meq Potassium Chloride (Klor-Con M20) 40 meq PO Q4H [facility] Stop: 08/27/17 17:31 Last Admin: 08/27/17 17:11 Dose: 40 meq Sodium Chloride (Saline Flush) 10 ml FLUSH ONETIME PRN PRN Reason: IV FLUSH Last Admin: 08/25/17 19:39 Dose: 10 ml Temazepam (Restoril) 15 mg PO BEDTIME PRN PRN Reason: Sleep Consult PN Assessment/Plan Procedures: Procedures ASSAY OF CREATININE (11/12/14) MRI LUMBAR SPINE W/O & W/DYE (11/12/14) ROUTINE VENIPUNCTURE (11/12/14) X-RAY BEND ONLY L-S SPINE (12/16/14) X-RAY EXAM L-S SPINE 2/3 VWS (04/16/15) Problem List Initiated/Reviewed/Updated: Yes Plan: surgical consult dictated [email or web address]
[2017-08-27] MEDS: Folic Acid 1 MG Tab PO SCH (20:53)
[2017-08-27] MEDS: Multivitamins,Therapeutic Tab PO SCH (20:53)
[2017-08-27] MEDS: Thiamine 100 MG Tab PO SCH (20:55)
[2017-08-27] MEDS: Famotidine 20 MG Tab PO SCH (20:55)
[2017-08-27] MEDS: Colesevelam 625 MG Tab PO SCH (20:56)
[2017-08-27] MEDS ORDERED: Lactulose Soln 10 GM/15 ML 30 ML UD Cup PO SCH (21:00)
[2017-08-27] MEDS: Calcium Carbonate 500 MG Tab.Chew PO SCH (21:03)
[2017-08-27] MEDS ORDERED: Rifaximin 550 MG Tab PO ONE (21:28)
[2017-08-28] MEDS: Lactulose Soln 10 GM/15 ML 30 ML UD Cup PO SCH ×2 (06:15→12:08)
[2017-08-28] MEDS: Sodium Chloride 0.9% 1,000 ML IV SCH (06:45)
--- NOTE | 2017-08-28 07:49 | CONS ---
CONSULTING PHYSICIAN: Camron Dunlap MD DATE OF CONSULTATION: 08/27/2017 HISTORY OF PRESENT ILLNESS: This is a 56-year-old who has noticed to be jaundiced and was sent to the ER on 08/25/2017. His CT scan showed some thickening of the gallbladder wall and there is concern that jaundice may be due to cholelithiasis and I was asked to evaluate the patient. However, the ultrasound showed the thickening of the gallbladder, which is due to ascites and also does show some possible polyps, but no stones or shadowing and no enlargement of the common duct, it is 8 mm. The patient has a history of alcohol use since age 15, is a known alcoholic. He gets withdrawal symptoms when he quits drinking. He says he stopped 3 weeks ago, although he has been using NyQuil because of a cold. He denies any blood transfusions, ulcer, history of hepatitis, or drug use. He does have sleep apnea on CPAP. Chronic low back pain. REVIEW OF SYSTEMS: Denies any review of systems. No rectal bleeding or vomiting of blood. Does have some abdominal distention recently. No swelling of the legs he states. No nausea, vomiting, and does have some indigestion. Neurologic exam the has noted some confabulation. MEDICATIONS: Per medication reconciliation form. FAMILY HISTORY: Negative. He has moved from [place] recently. PHYSICAL EXAMINATION: VITAL SIGNS: Temperature 37, pulse 97, respirations 18, blood pressure 117/70. GENERAL: The patient is obese. HEENT: Eyes: Jaundiced. Oral cavity: Healthy. NECK: Supple. LUNGS: Some rhonchi in the base. HEART: Heart tones regular rate. ABDOMEN: Rotund with umbilical hernia with some erythema of the umbilicus. SKIN: Some palmar erythema noted. skin is warm and dry. EXTREMITIES: Lower extremities show good pulses in the posterior tibial, dorsalis pedis, and there is no edema. NEUROLOGIC: Cranial nerves III through XII intact. No sensorineural deficit. Moves all 4 extremities. PSYCHIATRIC: The patient does confabulate and has a weak grasp of events and puts together in a strange half truth fashion. DIAGNOSTIC DATA: Laboratory reviewed showing as ultrasound described above. CT scan was reviewed showing abnormal liver, splenomegaly, and ascites. Ultrasound as described recently. LABORATORY DATA: The INR is 2.0. Vitamin K has been given. His total bilirubin is 9.8. Albumin is low 2.2. ASSESSMENT: Liver failure with portal hypertension, likely due to cirrhosis by history. RECOMMENDATION: As per admitting physician. SHERON /[id number]
[2017-08-28] MEDS: Famotidine 20 MG Tab PO SCH (08:12)
[2017-08-28] MEDS: Calcium Carbonate 500 MG Tab.Chew PO SCH (08:13)
[2017-08-28] MEDS: Torsemide 20 MG Tab PO SCH (08:24)
[2017-08-28] MEDS: Colesevelam 625 MG Tab PO SCH (08:24)
[2017-08-28] MEDS: Fish Oil/Omega-3 Fatty Acids 1 Gm Cap PO SCH (08:24)
[2017-08-28] MEDS: Spironolactone 25 MG Tab PO SCH (08:24)
[2017-08-28] MEDS: Vancomycin 50 MG/ML 150ML Oral Solution Kit PO SCH ×2 (08:33→12:03)
--- NOTE | 2017-08-28 08:45 | PCM.PN ---
- General Info Date of Service: 08/28/17 Admission Dx/Problem (Free Text): Admission Diagnosis/Problem Admission Diagnosis/Problem Cirrhosis of liver with ascites - Patient Data Vitals - Most Recent: Last Vital Signs Temp 98.1 F 08/28/17 03:40 Pulse 99 08/28/17 03:40 Resp 20 08/28/17 03:40 BP 131/82 08/28/17 08:14 Pulse Ox 91 L 08/28/17 03:40 Weight - Most Recent: 256 lb 9.6 oz I&O - Last 24 Hours: Intake & Output 08/27/17 08/28/17 08/28/17 22:59 06:59 14:59 Intake Total 2170 1706 Output Total 2200 Balance -30 1706 Lab Results Last 24 Hours: Laboratory Results - last 24 hr 08/27/17 08/28/17 08/28/17 Range/Units 15:50 06:03 06:03 WBC 4.85 (4.23-9.07) K/mm3 RBC 3.42 L (4.63-6.08) M/mm3 Hgb 12.1 L (13.7-17.5) gm/L Hct 34.7 L (40.1-51.0) % MCV 101.5 H (79.0-92.2) fl MCH 35.4 H (25.7-32.2) pg MCHC 34.9 (32.2-35.5) g/dl RDW Std Deviation 70.4 H (35.1-43.9) fL Plt Count 47 L (163-337) K/mm3 MPV 10.7 (9.4-12.3) fl Neut % (Auto) 65.2 (34.0-67.9) % Lymph % (Auto) 14.0 L (21.8-53.1) % [place] % (Auto) 19.8 H (5.3-12.2) % Eos % (Auto) 0.2 L (0.8-7.0) Baso % (Auto) 0.4 (0.1-1.2) % Neut # (Auto) 3.16 (1.78-5.38) K/mm3 Lymph # (Auto) 0.68 L (1.32-3.57) K/mm3 [place] # (Auto) 0.96 H (0.30-0.82) K/mm3 Eos # (Auto) 0.01 L (0.04-0.54) K/mm3 Baso # (Auto) 0.02 (0.01-0.08) K/mm3 Manual Slide Review Abnormal smear PT (9.5-12.1) SECONDS INR Sodium 135 L (136-145) mEq/L Potassium 3.1 L (3.5-5.1) mEq/L Chloride 100 (98-107) mEq/L Carbon Dioxide 28 (21-32) mEq/L Anion Gap 10.1 (5-15) BUN 9 (7-18) mg/dL Creatinine 0.9 (0.7-1.3) mg/dL Est Cr Clr Drug Dosing 97.61 mL/min Estimated GFR (MDRD) > 60 (>60) mL/min BUN/Creatinine Ratio 10.0 L (14-18) Glucose 107 H (74-106) mg/dL Calcium 7.1 L (8.5-10.1) mg/dL Magnesium 1.2 L (1.8-2.4) mg/dl Total Bilirubin 11.2 H (0.2-1.0) mg/dL AST 174 H (15-37) U/L ALT 56 (16-63) U/L Alkaline Phosphatase 103 (46-116) U/L Ammonia 21 (11-32) umol/L C-Reactive Protein 3.9 H* (<1.0) mg/dL Total Protein 6.5 (6.4-8.2) g/dl Albumin 2.1 L (3.4-5.0) g/dl Globulin 4.4 gm/dL Albumin/Globulin Ratio 0.5 L (1-2) 08/28/17 Range/Units 06:03 WBC (4.23-9.07) K/mm3 RBC (4.63-6.08) M/mm3 Hgb (13.7-17.5) gm/L Hct (40.1-51.0) % MCV (79.0-92.2) fl MCH (25.7-32.2) pg MCHC (32.2-35.5) g/dl RDW Std Deviation (35.1-43.9) fL Plt Count (163-337) K/mm3 MPV (9.4-12.3) fl Neut % (Auto) (34.0-67.9) % Lymph % (Auto) (21.8-53.1) % [place] % (Auto) (5.3-12.2) % Eos % (Auto) (0.8-7.0) Baso % (Auto) (0.1-1.2) % Neut # (Auto) (1.78-5.38) K/mm3 Lymph # (Auto) (1.32-3.57) K/mm3 [place] # (Auto) (0.30-0.82) K/mm3 Eos # (Auto) (0.04-0.54) K/mm3 Baso # (Auto) (0.01-0.08) K/mm3 Manual Slide Review PT 19.5 H (9.5-12.1) SECONDS INR 1.81 Sodium (136-145) mEq/L Potassium (3.5-5.1) mEq/L Chloride (98-107) mEq/L Carbon Dioxide (21-32) mEq/L Anion Gap (5-15) BUN (7-18) mg/dL Creatinine (0.7-1.3) mg/dL Est Cr Clr Drug Dosing mL/min Estimated GFR (MDRD) (>60) mL/min BUN/Creatinine Ratio (14-18) Glucose (74-106) mg/dL Calcium (8.5-10.1) mg/dL Magnesium (1.8-2.4) mg/dl Total Bilirubin (0.2-1.0) mg/dL AST (15-37) U/L ALT (16-63) U/L Alkaline Phosphatase (46-116) U/L Ammonia (11-32) umol/L C-Reactive Protein (<1.0) mg/dL Total Protein (6.4-8.2) g/dl Albumin (3.4-5.0) g/dl Globulin gm/dL Albumin/Globulin Ratio (1-2) Scott Results Last 24 Hours: Microbiology 08/25/17 21:20 Stool Culture - Preliminary Stool / Feces - Final NEGATIVE FOR SHIGA TOXIN 1 - Final NEGATIVE FOR SHIGA TOXIN 2 Med Orders - Current: Current Medications Acetaminophen (Tylenol) 650 mg PO Q4H PRN PRN Reason: Pain (Mild 1-3)/fever Albuterol/Ipratropium (Duoneb 3.0-0.5 Mg/3 Ml) 3 ml NEB Q4H PRN PRN Reason: Shortness Of Breath/wheezing Calcium Carbonate/Glycine (Tums) 1,000 mg PO BID [facility] Last Admin: 08/28/17 08:13 Dose: 1,000 mg Captopril (Capoten) 12.5 mg PO Q8H [facility] Last Admin: 08/28/17 08:14 Dose: 12.5 mg Chlordiazepoxide HCl (Librium) 25 mg PO Q8H PRN PRN Reason: Withdrawal Symptoms Clonidine HCl (Catapres) 0.1 mg PO Q4H PRN PRN Reason: Agitation Colesevelam HCl (Welchol) 1,875 mg PO BID [facility] Last Admin: 08/28/17 08:24 Dose: 1,875 mg Cyclobenzaprine HCl (Flexeril) 10 mg PO TID PRN PRN Reason: Cramping Famotidine (Pepcid) 20 mg PO BID [facility] Last Admin: 08/28/17 08:12 Dose: 20 mg Fish Oil (Fish Oil) 1 gm PO DAILY [facility] Last Admin: 08/28/17 08:24 Dose: 1 gm Folic Acid (Folic Acid) 1 mg PO BEDTIME [facility] Last Admin: 08/27/17 20:53 Dose: 1 mg Haloperidol Lactate (Haldol) 2 mg IM Q4H PRN PRN Reason: Agitation Hydralazine HCl (Apresoline) 20 mg IVPUSH Q4H PRN PRN Reason: Hypertension Sodium Chloride (Normal Saline) 1,000 mls @ 125 mls/hr IV ASDIRECTED [facility] Last Admin: 08/28/17 06:45 Dose: 125 mls/hr Promethazine HCl 12.5 mg/ (Sodium Chloride) 50.5 mls @ 100 mls/hr IV Q6H PRN PRN Reason: Nausea/Vomiting Magnesium Sulfate 2 gm/ Premix 50 mls @ 25 mls/hr IV Q2H [facility] Stop: 08/28/17 14:14 Lactulose (Cephulac) 30 gm PO TID@0700,1300,1900 [facility] Last Admin: 08/28/17 06:15 Dose: 30 gm Lorazepam (Ativan) 2 mg IVPUSH Q4H PRN PRN Reason: Seizures Lorazepam (Ativan) 1 mg IV Q6H PRN PRN Reason: Anxiety Lorazepam (Ativan) 0 mg IVPUSH Q4H PRN; Protocol PRN Reason: Withdrawal Symptoms Magnesium Sulfate (Pharmacy To Dose - Magnesium Replacement) 1 dose .XX ASDIRECTED [facility] Metoprolol Tartrate (Lopressor) 5 mg IVPUSH Q4H PRN PRN Reason: Tachycardia Morphine Sulfate (Morphine) 1 mg IVPUSH Q4H PRN PRN Reason: Pain (severe 7-10) Stop: 08/30/17 22:43 Multivitamins (Thera) 1 each PO BEDTIME [facility] Last Admin: 08/27/17 20:53 Dose: 1 each Nicotine (Habitrol) 21 mg TRDERM DAILY PRN PRN Reason: Nicotine Ondansetron HCl (Zofran) 4 mg IV Q6H PRN PRN Reason: Nausea/Vomiting Phytonadione (Aquamephyton) 5 mg SUBCUT DAILY [facility] Stop: 08/28/17 09:01 Last Admin: 08/28/17 08:24 Dose: 5 mg Potassium Chloride (Pharmacy To Dose - Potassium Replacement) 1 dose .XX ASDIRECTED [facility] Potassium Chloride (Klor-Con M20) 40 meq PO Q4H [facility] Stop: 08/28/17 16:16 Rifaximin (Xifaxan) 550 mg PO BID [facility] Last Admin: 08/28/17 08:14 Dose: 550 mg Sodium Chloride (Saline Flush) 10 ml FLUSH ASDIRECTED PRN PRN Reason: Keep Vein Open Last Admin: 08/25/17 17:15 Dose: 10 ml Spironolactone (Aldactone) 50 mg PO BID [facility] Last Admin: 08/28/17 08:24 Dose: 50 mg Thiamine HCl (Vitamin B-1) 100 mg PO BEDTIME [facility] Last Admin: 08/27/17 20:55 Dose: 100 mg Torsemide (Demadex) 20 mg PO DAILY [facility] Last Admin: 08/28/17 08:24 Dose: 20 mg Vancomycin HCl (First-Vancomycin 50 Compounding Kit) 125 mg PO QID [facility] Last Admin: 08/28/17 08:33 Dose: 125 mg Discontinued Medications Bumetanide (Bumex) 0.5 mg IVPUSH ONETIME ONE Stop: 08/27/17 18:01 Last Admin: 08/27/17 17:19 Dose: 0.5 mg Diatrizoate Meglum/Diatrizoate Sod (Gastrografin 37%) 120 ml PO ONETIME ONE Stop: 08/25/17 19:16 Last Admin: 08/25/17 19:38 Dose: 90 ml Famotidine (Pepcid) 20 mg IVPUSH BID [facility] Last Admin: 08/27/17 09:02 Dose: 20 mg Fenofibrate (Fenofibrate) 54 mg PO DAILY [facility] Stop: 08/26/17 10:00 Last Admin: 08/26/17 10:32 Dose: Not Given Fenofibrate (Tricor) 145 mg PO DAILY [facility] Last Admin: 08/27/17 08:58 Dose: 145 mg Folic Acid (Folic Acid) 1 mg PO ONETIME ONE Stop: 08/25/17 16:10 Last Admin: 08/25/17 17:24 Dose: 1 mg Thiamine HCl 100 mg/ Sodium (Chloride) 11 mls @ 200 mls/hr IV ONETIME ONE Stop: 08/25/17 16:12 Last Admin: 08/25/17 17:18 Dose: Not Given Magnesium Sulfate 2 gm/ Premix 50 mls @ 25 mls/hr IV ONETIME ONE Stop: 08/25/17 18:14 Last Admin: 08/25/17 17:15 Dose: 25 mls/hr Potassium Chloride 10 meq/ (Premix) 100 mls @ 100 mls/hr IV ONETIME ONE Stop: 08/25/17 17:14 Last Admin: 08/25/17 17:12 Dose: 100 mls/hr Potassium Chloride 10 meq/ (Premix) 100 mls @ 100 mls/hr IV ONETIME ONE Stop: 08/25/17 17:14 Last Admin: 08/25/17 18:31 Dose: 100 mls/hr Thiamine HCl 100 mg/ Sodium (Chloride) 101 mls @ 202 mls/hr IV ONETIME ONE Stop: 08/25/17 17:15 Last Admin: 08/25/17 17:17 Dose: 202 mls/hr Magnesium Sulfate 2 gm/ Premix 50 mls @ 25 mls/hr IV ONETIME ONE Stop: 08/26/17 01:14 Last Admin: 08/26/17 01:43 Dose: Not Given Magnesium Sulfate 2 gm/ Premix 50 mls @ 25 mls/hr IV ONETIME ONE Stop: 08/26/17 03:29 Last Admin: 08/26/17 01:46 Dose: 25 mls/hr Magnesium Sulfate 2 gm/ Premix 50 mls @ 25 mls/hr IV ONETIME ONE Stop: 08/26/17 11:29 Last Admin: 08/26/17 10:05 Dose: 25 mls/hr Magnesium Sulfate 2 gm/ Premix 50 mls @ 25 mls/hr IV Q2H [facility] Stop: 08/27/17 13:29 Last Admin: 08/27/17 12:34 Dose: 25 mls/hr Iopamidol (Isovue-300 (61%)) 150 ml IVPUSH ONETIME ONE Stop: 08/25/17 19:16 Last Admin: 08/25/17 19:39 Dose: 150 ml Lactulose (Cephulac) 20 gm PO BID PRN PRN Reason: Constipation Lactulose (Cephulac) 30 gm PO BID [facility] Lactulose (Cephulac) 30 gm PO BID [facility] Last Admin: 08/27/17 20:57 Dose: 30 gm Magnesium Oxide (Magnesium Oxide) 400 mg PO ONETIME ONE Stop: 08/25/17 16:10 Last Admin: 08/25/17 17:24 Dose: 400 mg Oxycodone HCl (Oxycodone) 10 mg PO Q4H PRN PRN Reason: Pain (moderate 4-6) Last Admin: 08/26/17 10:37 Dose: 5 mg Pantoprazole Sodium (Protonix Iv) 40 mg IV Q12HR [facility] Phytonadione (Aquamephyton) 5 mg SUBCUT ONETIME ONE Stop: 08/25/17 23:05 Last Admin: 08/26/17 01:42 Dose: Not Given Phytonadione (Aquamephyton) 5 mg SUBCUT ONETIME ONE Stop: 08/26/17 01:31 Last Admin: 08/26/17 01:44 Dose: 5 mg Potassium Chloride (Klor-Con M20) 40 meq PO Q4H [facility] Stop: 08/26/17 17:31 Last Admin: 08/26/17 17:25 Dose: 40 meq Potassium Chloride (Klor-Con M20) 40 meq PO Q4H [facility] Stop: 08/27/17 17:31 Last Admin: 08/27/17 17:11 Dose: 40 meq Rifaximin (Xifaxan) 550 mg PO ONETIME ONE Stop: 08/27/17 21:29 Last Admin: 08/27/17 22:37 Dose: 550 mg Sodium Chloride (Saline Flush) 10 ml FLUSH ONETIME PRN PRN Reason: IV FLUSH Last Admin: 08/25/17 19:39 Dose: 10 ml Temazepam (Restoril) 15 mg PO BEDTIME PRN PRN Reason: Sleep - Plan Plan:: Assessment/Plan: Acute: End Stage Liver Disease (Decompensated) - Liver Cirrhosis/Child Class - Likely 2/2 ETOH Abuse - Carries a hx/o 15-20 of heavy alcoholic drinking - He drinks 3-4 shots of whiskey and sometimes with beers - CT scan report: Diffuse abnormal liver with multiple small nodular areas of poor enhancement--> biopsy is recommended (will be done outpatient) - Limit Tylenol to 3500/day and Advised to quit drinking - MELD Score 23 and Child-Duran Score 11 (Life Expectancy: 1-3 years with abdominal surgery raffaele-operative mortality of 82%) - Folic Acid, Thiamine and MVI Daily - Hepatitis Panel, Alpha fetoprotein and Alpha 1 anti-trypsin - Need liver biopsy for staging if he has HCC and Gold Standard for diagnosis --> refer to GI in [place] Abdominal Ascites/Peripheral Edema and Portal HTN - 2/2 Above - Aldactone 50 mg po BID, Demadex 20 mg po daily, Capoten 12.5 mg po Q8H and Famotidine 20 mg IVP BID - CT scan: mild ascites--> no need for paracentesis at this time Splenomegaly - 2/2 Portal HTN - Treatment as above C. Diff Associated Diarrhea - New Onset - Vancomycin 125 mg po QID for 10 days - Isolation precaution Jaundice/Hyperbilirubinemia, Worsening - 2/2 likely ETOH Liver Cirrhosis - R/o Viral Hepatitis - T. Bilirubin 8.4--> 9.1--> now 9.8 - Welchol BID and discontinue Fenobirate Hypomagnesemia - Mg 1.0--> 1.6--> 1.2 - 2/2 inadequate intake - Replete and monitor Hypokalemia - K 2.97--> 3.2 - 2/2 Renal and GI loss - Replete and monitor Elevated PT/INR - Vit K 5 mg IM for 3 days then d/c Thrombocytopenia - 2/2 Splenic Sequestration - Platelet of 29,000--> 35,000c - Avoid ASA ETOH Abuse - [facility] Protocol - Ativan/Clonidin/Librium for Symptomatic control Intermittent Confusion/Hepatic Encephalopathy - This maybe his knew baseline now with metabolic/drug encephalopathy - Also Total bilirubin continues to trend up now at 9.8 - Head CT scan w/o contrast for baseline - Ammonia level Chronic: EBER Back Pain ETOH Abuse Plan: He is clinically stable Routine AM Labs He needs zinc supplement on discharge Vit D level pending Continue PT/OT Avoid Benzo and Narcotics Consider GS consult SW/CM for d/c planning GI eval outpatient after discharge Code status: 1 Transfer to [place] if he does not improve
[2017-08-28] MEDS: Potassium Chloride 20 MEQ Tab.ER PO SCH ×2 (08:59→12:02)
[2017-08-28] MEDS: Magnesium Sulfate/Water 2 GM in Premix Bag 1 BAG IV SCH ×2 (08:59→12:00)
[2017-08-28] MEDS ORDERED: Rifaximin 550 MG Tab PO SCH (09:00)
[2017-08-28] MEDS ORDERED: Dexamethasone 4 MG/ML SDV IVPUSH SCH (11:15)
--- NOTE | 2017-08-28 11:34 | PCM.DCSUM1 ---
Discharge Summary - Hospital Course Brief History: This is a 56-year-old white male with a past medical hx/o EBER not on CPAP, Chronic LBP and Obesity who comes in for evaluation of painless jaundice and abdominal distention. Patient was initially seen at his PCP's office but was referred to ED for further evaluation for concerns of obstructing gallstone in the common bile duct. Patient reports no RUQ pain. However he carries a hx/o chronic alcohol use/abuse since he was 15 years old. He normally drinks 3-4 shots of whiskey and at times a few beers. His main complaint is a mild cough with minimal production that has been going on for the past week. He has yellow eyes and increasingly dark colored urine. He denies any chest pain, shortness of breath, nausea/vomiting, abdominal pain but admits to having watery diarrhea. He denies any hx/o blood transfusions, no IVDU, incarceration and or viral hepatitis in the past. Patient moved here in [place] in 2011 from [place] with his family. His initial work up in ED shows an abnormal coagulation studies of 22.5 PT and 2.09 of INR. His magnesium is 1.0 , direct bilirubin of 4.0, GGT of 286, and total bilirubin of 8.4. His UA shows orange colored, 3+ of urine bilirubin and greater than 8 urobilinogen. His UDS is negative. C. difficile screening is positive. Abdominal ultrasound report reads very atypical genic liver most likely representing fatty infiltration. His splenomegaly. Mild ascites. Gallbladder wall thickening with questionable small gallbladder polyp. Gallbladder wall thickening may be artifactual as discussed and because of ascites. No shadowing cholelithiasis is seen. Common bile duct measures slightly prominent at 8 mm. Abdominal/Pelvic CT scan report reads diffuse abnormal liver with multiple small nodule areas of poor enhancement. Findings most likely represent cirrhosis of the liver biopsy is recommended to further evaluate. Splenomegaly which is likely from portal hypertension. Mesenteric vessels also compatible with portal hypertension from the liver disease. Ascites. Patient is being admitted for complications related to liver disease likely alcoholic cirrhosis. He is full code. - Discharge Data Discharge Date: 08/28/17 Discharge Disposition: DC/Tfer to Acute Hospital 02 Condition: Fair - Discharge Diagnosis/Problem(s) (1) End stage liver disease SNOMED Code(s): 276693643 ICD Code: K72.90 - HEPATIC FAILURE, UNSPECIFIED WITHOUT COMA Status: Acute (2) Alcoholic cirrhosis of liver with ascites SNOMED Code(s): 038681166, 276157957 ICD Code: K70.31 - ALCOHOLIC CIRRHOSIS OF LIVER WITH ASCITES Status: Acute (3) Splenomegaly, congestive, chronic SNOMED Code(s): 241124380 ICD Code: D73.2 - CHRONIC CONGESTIVE SPLENOMEGALY Status: Acute (4) Clostridium difficile diarrhea SNOMED Code(s): 3793428139850 ICD Code: A04.72 - ENTEROCOLITIS D/T CLOSTRIDIUM DIFFICILE, NOT SPCF RECUR Status: Acute (5) Alcohol abuse SNOMED Code(s): 43756390 ICD Code: F10.10 - ALCOHOL ABUSE, UNCOMPLICATED Status: Acute (6) Hypokalemia SNOMED Code(s): 51459021 ICD Code: E87.6 - HYPOKALEMIA Status: Acute (7) Portal hypertension SNOMED Code(s): 25359895 ICD Code: K76.6 - PORTAL HYPERTENSION Status: Acute (8) Thrombocytopenia due to hypersplenism SNOMED Code(s): 03499837 ICD Code: D69.59 - OTHER SECONDARY THROMBOCYTOPENIA Status: Acute (9) Hepatic encephalopathy SNOMED Code(s): 11733382 ICD Code: K72.90 - HEPATIC FAILURE, UNSPECIFIED WITHOUT COMA Status: Acute - Patient Summary/Data Operative Procedure(s) Performed: None Complications: None Consults: Consultations 08/25/17 22:44 Consult to Case Management [CONS] Routine Consult to Five Piece Expansion Maker Hand [CONS] Routine Consult to Physician [CONS] Routine Consult to Manufactured Buildings Repairer [CONS] Routine Consult to Spiritual Care [CONS] Routine OT Evaluation and Treatment [CONS] Routine PT Evaluation and Treatment [CONS] Routine 08/27/17 08:48 Consult to Dietary [Consult to Five Piece Expansion Maker Hand] [CONS] Routine Labs Pending at D/C: None Recommended Follow-up Testing/Procedures: None Planned Operative Procedure(s) after DC: Possible live biopsy Hospital Course: Patient was apparently admitted for evaluation of painless jaundice and abdominal ascites. However all diagnostic work up primarily abdominal ultrasound and CT scan showed mesenteric vessels, splenomegaly, Diffusely abnormal liver with multiple small nodular areas of poor enhancement, and abdominal ascites- all points to liver cirrhosis. His CBC shows anemia with significantly low platelet levels. His INR significantly elevated. Although he received vitamin K subcutaneous 3, desire INR level continues to trend up. His chemistry significant for electrolytes abnormalities with primarily focus on total bilirubin. On presentation he had a level of 8.4 and despite having bile acid sequestration is level continue to go up as high as 11.2 She received treatment for his end-stage liver cirrhosis to include loop diuretics, potassium sparing FATMATA inhibitor and electrolytes abnormalities. However despite those treatment provided, he started to develop acute confusion. Therefore he was started on lactulose and Xifaxan. He continues to to have hepatic encephalopathy despite optimal treatment. His family understood the severity of his liver disease. However he would like to pursue further treatment and evaluation in [facility]. Therefore he was sent to [facility] and he was accepted under services of Dr. walsh an Dr. Echols GI specialist. His overall prognosis was poor. - Patient Instructions Diet: Heart Healthy Diet, Low Sodium, No Alcoholic Beverages, Fluid Restriction Fluid Restriction: 2000 mL Activity: As Tolerated Driving: Do Not Drive Showering/Bathing: May Shower Notify Provider of: Fever, Increased Pain, Swelling and Redness, Nausea and/or Vomiting Other/Special Instructions: - Transfer to [facility] under the servcies of Felicitas, admitting hospitalist. Dr. Meeks, GI, will be consulting. - Discharge Plan Home Medications: Home Meds Aspirin 1 tab PO DAILY 11/12/14 [History] Fish Oil/[place]-3 Fatty Acids [Fish Oil] 1 tab PO DAILY 11/12/14 [History] Referrals: Lisette Koehler MD [Primary Care Provider] - - Discharge Summary/Plan Comment DC Time >30 min.: Yes (45 mins) Discharge Summary/Plan Comment: Transfer to [facility] under the services of Dr. Polk, admitting hospitalist. - General Info Date of Service: 08/28/17 Admission Dx/Problem (Free Text: Painless Jaundice and Abdominal Distention Subjective Update: Follow Up Functional Status: Reports: Pain Controlled, Tolerating Diet - Review of Systems General: Denies: Fever, Weakness, Fatigue, Malaise, Chills HEENT: Reports: Other (yellow eyes ) Pulmonary: Denies: Shortness of Breath, Pleuritic Chest Pain Cardiovascular: Reports: No Symptoms Gastrointestinal: Denies: Abdominal Pain, Nausea, Vomiting Skin: Reports: Jaundice. Denies: Cyanosis, Pallor, Diaphoresis, Pruritis Neurological: Reports: Confusion. Denies: Difficulty Walking, Weakness, Gait Disturbance Psychiatric: Denies: Confusion, Depression, Anxiety, Hallucinations Systems Review Comment: No significant overnight or acute issues except he is getting more encephalopathic than usual. His total bilirubin continues to trend up despite having normal ammonia level. He denies any acute issues or complaints. - Patient Data Vitals - Most Recent: Last Vital Signs Temp 36.5 C 08/28/17 08:24 Pulse 110 H 08/28/17 09:22 Resp 22 H 08/28/17 08:24 BP 131/82 08/28/17 08:24 Pulse Ox 95 08/28/17 09:22 Weight - Most Recent: 116.392 kg I&O - Last 24 hours: Intake & Output 08/27/17 08/28/17 08/28/17 22:59 06:59 14:59 Intake Total 2170 1706 Output Total 2200 Balance -30 1706 Lab Results - Last 24 hrs: Laboratory Results - last 24 hr 08/27/17 08/28/17 08/28/17 Range/Units 15:50 06:03 06:03 WBC 4.85 (4.23-9.07) K/mm3 RBC 3.42 L (4.63-6.08) M/mm3 Hgb 12.1 L (13.7-17.5) gm/L Hct 34.7 L (40.1-51.0) % MCV 101.5 H (79.0-92.2) fl MCH 35.4 H (25.7-32.2) pg MCHC 34.9 (32.2-35.5) g/dl RDW Std Deviation 70.4 H (35.1-43.9) fL Plt Count 47 L (163-337) K/mm3 MPV 10.7 (9.4-12.3) fl Neut % (Auto) 65.2 (34.0-67.9) % Lymph % (Auto) 14.0 L (21.8-53.1) % [place] % (Auto) 19.8 H (5.3-12.2) % Eos % (Auto) 0.2 L (0.8-7.0) Baso % (Auto) 0.4 (0.1-1.2) % Neut # (Auto) 3.16 (1.78-5.38) K/mm3 Lymph # (Auto) 0.68 L (1.32-3.57) K/mm3 [place] # (Auto) 0.96 H (0.30-0.82) K/mm3 Eos # (Auto) 0.01 L (0.04-0.54) K/mm3 Baso # (Auto) 0.02 (0.01-0.08) K/mm3 Manual Slide Review Abnormal smear PT (9.5-12.1) SECONDS INR Sodium 135 L (136-145) mEq/L Potassium 3.1 L (3.5-5.1) mEq/L Chloride 100 (98-107) mEq/L Carbon Dioxide 28 (21-32) mEq/L Anion Gap 10.1 (5-15) BUN 9 (7-18) mg/dL Creatinine 0.9 (0.7-1.3) mg/dL Est Cr Clr Drug Dosing 97.61 mL/min Estimated GFR (MDRD) > 60 (>60) mL/min BUN/Creatinine Ratio 10.0 L (14-18) Glucose 107 H (74-106) mg/dL Calcium 7.1 L (8.5-10.1) mg/dL Magnesium 1.2 L (1.8-2.4) mg/dl Total Bilirubin 11.2 H (0.2-1.0) mg/dL AST 174 H (15-37) U/L ALT 56 (16-63) U/L Alkaline Phosphatase 103 (46-116) U/L Ammonia 21 (11-32) umol/L C-Reactive Protein 3.9 H* (<1.0) mg/dL Total Protein 6.5 (6.4-8.2) g/dl Albumin 2.1 L (3.4-5.0) g/dl Globulin 4.4 gm/dL Albumin/Globulin Ratio 0.5 L (1-2) 08/28/17 Range/Units 06:03 WBC (4.23-9.07) K/mm3 RBC (4.63-6.08) M/mm3 Hgb (13.7-17.5) gm/L Hct (40.1-51.0) % MCV (79.0-92.2) fl MCH (25.7-32.2) pg MCHC (32.2-35.5) g/dl RDW Std Deviation (35.1-43.9) fL Plt Count (163-337) K/mm3 MPV (9.4-12.3) fl Neut % (Auto) (34.0-67.9) % Lymph % (Auto) (21.8-53.1) % [place] % (Auto) (5.3-12.2) % Eos % (Auto) (0.8-7.0) Baso % (Auto) (0.1-1.2) % Neut # (Auto) (1.78-5.38) K/mm3 Lymph # (Auto) (1.32-3.57) K/mm3 [place] # (Auto) (0.30-0.82) K/mm3 Eos # (Auto) (0.04-0.54) K/mm3 Baso # (Auto) (0.01-0.08) K/mm3 Manual Slide Review PT 19.5 H (9.5-12.1) SECONDS INR 1.81 Sodium (136-145) mEq/L Potassium (3.5-5.1) mEq/L Chloride (98-107) mEq/L Carbon Dioxide (21-32) mEq/L Anion Gap (5-15) BUN (7-18) mg/dL Creatinine (0.7-1.3) mg/dL Est Cr Clr Drug Dosing mL/min Estimated GFR (MDRD) (>60) mL/min BUN/Creatinine Ratio (14-18) Glucose (74-106) mg/dL Calcium (8.5-10.1) mg/dL Magnesium (1.8-2.4) mg/dl Total Bilirubin (0.2-1.0) mg/dL AST (15-37) U/L ALT (16-63) U/L Alkaline Phosphatase (46-116) U/L Ammonia (11-32) umol/L C-Reactive Protein (<1.0) mg/dL Total Protein (6.4-8.2) g/dl Albumin (3.4-5.0) g/dl Globulin gm/dL Albumin/Globulin Ratio (1-2) KISHA Results - Last 24 hrs: Microbiology 08/25/17 21:20 Stool Culture - Preliminary Stool / Feces - Final NEGATIVE FOR SHIGA TOXIN 1 - Final NEGATIVE FOR SHIGA TOXIN 2 Med Orders - Current: Current Medications Acetaminophen (Tylenol) 650 mg PO Q4H PRN PRN Reason: Pain (Mild 1-3)/fever Albuterol/Ipratropium (Duoneb 3.0-0.5 Mg/3 Ml) 3 ml NEB Q4H PRN PRN Reason: Shortness Of Breath/wheezing Calcium Carbonate/Glycine (Tums) 1,000 mg PO BID [facility] Last Admin: 08/28/17 08:13 Dose: 1,000 mg Captopril (Capoten) 12.5 mg PO Q8H [facility] Last Admin: 08/28/17 08:14 Dose: 12.5 mg Chlordiazepoxide HCl (Librium) 25 mg PO Q8H PRN PRN Reason: Withdrawal Symptoms Clonidine HCl (Catapres) 0.1 mg PO Q4H PRN PRN Reason: Agitation Colesevelam HCl (Welchol) 1,875 mg PO BID [facility] Last Admin: 08/28/17 08:24 Dose: 1,875 mg Cyclobenzaprine HCl (Flexeril) 10 mg PO TID PRN PRN Reason: Cramping Dexamethasone (Dexamethasone) 4 mg IVPUSH Q8H [facility] Famotidine (Pepcid) 20 mg PO BID [facility] Last Admin: 08/28/17 08:12 Dose: 20 mg Fish Oil (Fish Oil) 1 gm PO DAILY [facility] Last Admin: 08/28/17 08:24 Dose: 1 gm Folic Acid (Folic Acid) 1 mg PO BEDTIME [facility] Last Admin: 08/27/17 20:53 Dose: 1 mg Haloperidol Lactate (Haldol) 2 mg IM Q4H PRN PRN Reason: Agitation Hydralazine HCl (Apresoline) 20 mg IVPUSH Q4H PRN PRN Reason: Hypertension Sodium Chloride (Normal Saline) 1,000 mls @ 125 mls/hr IV ASDIRECTED [facility] Last Admin: 08/28/17 06:45 Dose: 125 mls/hr Promethazine HCl 12.5 mg/ (Sodium Chloride) 50.5 mls @ 100 mls/hr IV Q6H PRN PRN Reason: Nausea/Vomiting Magnesium Sulfate 2 gm/ Premix 50 mls @ 25 mls/hr IV Q2H [facility] Stop: 08/28/17 14:14 Last Admin: 08/28/17 08:59 Dose: 25 mls/hr Lactulose (Cephulac) 30 gm PO TID@0700,1300,1900 [facility] Last Admin: 08/28/17 06:15 Dose: 30 gm Lorazepam (Ativan) 2 mg IVPUSH Q4H PRN PRN Reason: Seizures Lorazepam (Ativan) 1 mg IV Q6H PRN PRN Reason: Anxiety Lorazepam (Ativan) 0 mg IVPUSH Q4H PRN; Protocol PRN Reason: Withdrawal Symptoms Magnesium Sulfate (Pharmacy To Dose - Magnesium Replacement) 1 dose .XX ASDIRECTED [facility] Metoprolol Tartrate (Lopressor) 5 mg IVPUSH Q4H PRN PRN Reason: Tachycardia Morphine Sulfate (Morphine) 1 mg IVPUSH Q4H PRN PRN Reason: Pain (severe 7-10) Stop: 08/30/17 22:43 Multivitamins (Thera) 1 each PO BEDTIME [facility] Last Admin: 08/27/17 20:53 Dose: 1 each Nicotine (Habitrol) 21 mg TRDERM DAILY PRN PRN Reason: Nicotine Ondansetron HCl (Zofran) 4 mg IV Q6H PRN PRN Reason: Nausea/Vomiting Potassium Chloride (Pharmacy To Dose - Potassium Replacement) 1 dose .XX ASDIRECTED [facility] Potassium Chloride (Klor-Con M20) 40 meq PO Q4H [facility] Stop: 08/28/17 16:16 Last Admin: 08/28/17 08:59 Dose: 40 meq Rifaximin (Xifaxan) 550 mg PO BID [facility] Last Admin: 08/28/17 08:14 Dose: 550 mg Sodium Chloride (Saline Flush) 10 ml FLUSH ASDIRECTED PRN PRN Reason: Keep Vein Open Last Admin: 08/25/17 17:15 Dose: 10 ml Spironolactone (Aldactone) 50 mg PO BID [facility] Last Admin: 08/28/17 08:24 Dose: 50 mg Thiamine HCl (Vitamin B-1) 100 mg PO BEDTIME [facility] Last Admin: 08/27/17 20:55 Dose: 100 mg Torsemide (Demadex) 20 mg PO DAILY [facility] Last Admin: 08/28/17 08:24 Dose: 20 mg Vancomycin HCl (First-Vancomycin 50 Compounding Kit) 125 mg PO QID [facility] Last Admin: 08/28/17 08:33 Dose: 125 mg Discontinued Medications Bumetanide (Bumex) 0.5 mg IVPUSH ONETIME ONE Stop: 08/27/17 18:01 Last Admin: 08/27/17 17:19 Dose: 0.5 mg Diatrizoate Meglum/Diatrizoate Sod (Gastrografin 37%) 120 ml PO ONETIME ONE Stop: 08/25/17 19:16 Last Admin: 08/25/17 19:38 Dose: 90 ml Famotidine (Pepcid) 20 mg IVPUSH BID [facility] Last Admin: 08/27/17 09:02 Dose: 20 mg Fenofibrate (Fenofibrate) 54 mg PO DAILY [facility] Stop: 08/26/17 10:00 Last Admin: 08/26/17 10:32 Dose: Not Given Fenofibrate (Tricor) 145 mg PO DAILY [facility] Last Admin: 08/27/17 08:58 Dose: 145 mg Folic Acid (Folic Acid) 1 mg PO ONETIME ONE Stop: 08/25/17 16:10 Last Admin: 08/25/17 17:24 Dose: 1 mg Thiamine HCl 100 mg/ Sodium (Chloride) 11 mls @ 200 mls/hr IV ONETIME ONE Stop: 08/25/17 16:12 Last Admin: 08/25/17 17:18 Dose: Not Given Magnesium Sulfate 2 gm/ Premix 50 mls @ 25 mls/hr IV ONETIME ONE Stop: 08/25/17 18:14 Last Admin: 08/25/17 17:15 Dose: 25 mls/hr Potassium Chloride 10 meq/ (Premix) 100 mls @ 100 mls/hr IV ONETIME ONE Stop: 08/25/17 17:14 Last Admin: 08/25/17 17:12 Dose: 100 mls/hr Potassium Chloride 10 meq/ (Premix) 100 mls @ 100 mls/hr IV ONETIME ONE Stop: 08/25/17 17:14 Last Admin: 08/25/17 18:31 Dose: 100 mls/hr Thiamine HCl 100 mg/ Sodium (Chloride) 101 mls @ 202 mls/hr IV ONETIME ONE Stop: 08/25/17 17:15 Last Admin: 08/25/17 17:17 Dose: 202 mls/hr Magnesium Sulfate 2 gm/ Premix 50 mls @ 25 mls/hr IV ONETIME ONE Stop: 08/26/17 01:14 Last Admin: 08/26/17 01:43 Dose: Not Given Magnesium Sulfate 2 gm/ Premix 50 mls @ 25 mls/hr IV ONETIME ONE Stop: 08/26/17 03:29 Last Admin: 08/26/17 01:46 Dose: 25 mls/hr Magnesium Sulfate 2 gm/ Premix 50 mls @ 25 mls/hr IV ONETIME ONE Stop: 08/26/17 11:29 Last Admin: 08/26/17 10:05 Dose: 25 mls/hr Magnesium Sulfate 2 gm/ Premix 50 mls @ 25 mls/hr IV Q2H [facility] Stop: 08/27/17 13:29 Last Admin: 08/27/17 12:34 Dose: 25 mls/hr Iopamidol (Isovue-300 (61%)) 150 ml IVPUSH ONETIME ONE Stop: 08/25/17 19:16 Last Admin: 08/25/17 19:39 Dose: 150 ml Lactulose (Cephulac) 20 gm PO BID PRN PRN Reason: Constipation Lactulose (Cephulac) 30 gm PO BID [facility] Lactulose (Cephulac) 30 gm PO BID [facility] Last Admin: 08/27/17 20:57 Dose: 30 gm Magnesium Oxide (Magnesium Oxide) 400 mg PO ONETIME ONE Stop: 08/25/17 16:10 Last Admin: 08/25/17 17:24 Dose: 400 mg Oxycodone HCl (Oxycodone) 10 mg PO Q4H PRN PRN Reason: Pain (moderate 4-6) Last Admin: 08/26/17 10:37 Dose: 5 mg Pantoprazole Sodium (Protonix Iv) 40 mg IV Q12HR [facility] Phytonadione (Aquamephyton) 5 mg SUBCUT DAILY [facility] Stop: 08/28/17 09:01 Last Admin: 08/28/17 08:24 Dose: 5 mg Phytonadione (Aquamephyton) 5 mg SUBCUT ONETIME ONE Stop: 08/25/17 23:05 Last Admin: 08/26/17 01:42 Dose: Not Given Phytonadione (Aquamephyton) 5 mg SUBCUT ONETIME ONE Stop: 08/26/17 01:31 Last Admin: 08/26/17 01:44 Dose: 5 mg Potassium Chloride (Klor-Con M20) 40 meq PO Q4H [facility] Stop: 08/26/17 17:31 Last Admin: 08/26/17 17:25 Dose: 40 meq Potassium Chloride (Klor-Con M20) 40 meq PO Q4H [facility] Stop: 08/27/17 17:31 Last Admin: 08/27/17 17:11 Dose: 40 meq Rifaximin (Xifaxan) 550 mg PO ONETIME ONE Stop: 08/27/17 21:29 Last Admin: 08/27/17 22:37 Dose: 550 mg Sodium Chloride (Saline Flush) 10 ml FLUSH ONETIME PRN PRN Reason: IV FLUSH Last Admin: 08/25/17 19:39 Dose: 10 ml Temazepam (Restoril) 15 mg PO BEDTIME PRN PRN Reason: Sleep - Exam General: Reports: Alert, Oriented, Cooperative, No Acute Distress, Other (Obese) HEENT: Reports: Pupils Equal, Pupils Reactive, EOMI, Mucous Membr. Moist/[place], Scleral Icterus Neck: Reports: Supple, Trachea Midline, No JVD, No Thyromegaly Lungs: Reports: Normal Respiratory Effort, Decreased Breath Sounds Cardiovascular: Reports: Regular Rate, Regular Rhythm GI/Abdominal Exam: Normal Bowel Sounds, Soft, No Mass, Distended, Hernia, Hepatomegaly, Splenomegaly, Other (Caput Medusae). No: Guarding, Rigid, Tender (Male) Exam: Deferred Rectal (Males) Exam: Deferred Back Exam: Reports: Normal Inspection, Decreased Range of Motion Extremities: Normal Inspection, Normal Range of Motion, Non-Tender, No Pedal Edema, Normal Capillary Refill, Other (Palmar erythema on both hands) Skin: Reports: Warm, Dry, Intact, Other (spider nevi on lower extremity) Neurological: Reports: No New Focal Deficit, Normal Gait, Other (confused from time to time) Psy/Mental Status: Reports: Alert, Normal Affect, Normal Mood
[2017-08-28 11:53] VITALS: BP 120/78
--- NOTE | 2017-08-28 12:06 | CT ---
Head CT Technique: Multiple axial sections through the brain were obtained. Intravenous contrast was not utilized. Comparison: No prior intracranial imaging is available. Findings: Ventricles along the basal cisterns and sulci over the convexities are mildly prominent. Minimal areas of diminished density noted within the periventricular white matter compatible with mild small vessel ischemic demyelination change. Minimal basal ganglia calcification is seen. No evidence of intracranial hemorrhage. No midline shift or mass effect is seen. Mild mucosal thickening noted within the ethmoid and left frontal sinus. No acute calvarial abnormality is seen. Impression: 1. Senescent change as noted above. 2. Mild sinus findings which are likely chronic. 3. No acute intracranial abnormality is identified. Diagnostic code #2 I agree with preliminary report from [facility], finalized at 08/27/17, 4:56 PM Central Time
== END 2017-08-28 13:00 | DRG 280 ==
LOC: JD.ED 15:04 → JD.MS 22:14
PROVIDERS: ADMIT Internal Medicine; ATTEND Internal Medicine
DX: K70.31 Alcoholic cirrhosis of liver with ascites (principal); G92 Toxic encephalopathy; K72.90 Hepatic failure, unspecified without coma; A04.72 Enterocolitis due to Clostridium difficile, not specified as recurrent; K76.6 Portal hypertension; D69.59 Other secondary thrombocytopenia; E83.42 Hypomagnesemia; D73.2 Chronic congestive splenomegaly; G47.33 Obstructive sleep apnea (adult) (pediatric); G89.29 Other chronic pain; M54.5 Low back pain; E66.9 Obesity, unspecified; Z68.36 Body mass index [BMI] 36.0-36.9, adult; E87.6 Hypokalemia; D73.1 Hypersplenism; R79.1 Abnormal coagulation profile; K82.4 Cholesterolosis of gallbladder; F10.20 Alcohol dependence, uncomplicated; T50.905A Adverse effect of unspecified drugs, medicaments and biological substances, initial encounter; Z88.0 Allergy status to penicillin; Z88.6 Allergy status to analgesic agent; Z91.030 Bee allergy status; Z79.82 Long term (current) use of aspirin; Z79.899 Other long term (current) drug therapy
CPT/HCPCS: 36415; 70450; 70450-26; 74177; 74177-26; 76700; 76700-26; 80053; 80074; 80306; 81001; 82103; 82105; 82140; 82247; 82248; 82272; 82306; 82977; 83615; 83735; 85025; 85610; 86140; 87046; 87328; 87329; 87427; 87493; 89055; 93005; 96361; 96365; 96366; 96367; 96368; 99285-25; A9270-GY; G0480; J1100; J3370; J3411; J3430; J3475; J3480; J7030; J7040; J7050; Q9963; Q9967

== ENCOUNTER 2018-05-20 05:12 | Emergency (ER) | payer BC ==
--- NOTE | 2018-05-20 06:01 | EDM.PDOC ---
ED HPI GENERAL MEDICAL PROBLEM - General Chief Complaint: Abdominal Pain Stated Complaint: SOB/DRY HEAVES/HEART STET PUT IN LAST WEEK Time Seen by Provider: 05/20/18 05:29 Source of Information: Reports: Patient, Family History Limitations: Reports: No Limitations - History of Present Illness INITIAL COMMENTS - FREE TEXT/NARRATIVE: This is a 57-year-old male. About a year ago he was diagnosed with liver cirrhosis due to alcoholism. He no longer drinks. He went down to [facility] in [place] for a liver transplant workup. During the workup they found that he had cardiac problems and he had a cardiac catheter suggested he needed triple bypass surgery but due to his condition he would not tolerate it so they placed 1 stent. His 1 week ago from last he got out of the hospital and came back home. When they released him they dropped his Lasix from 40 mg in the morning and 20 mg in the afternoon to just 20 mg a day and then dropped his spironolactone from 100 mg daily to 25 mg a day. Since that time he states he's been having marked increase swelling of his abdomen and now is short of breath and his abdomen is hurting. The patient has portal hypertension and has extensive esophageal varices and he has been banded 8 times there are also vessels bleeding in his stomach that have been cauterized as well. The patient is chronically jaundiced. He denies any recent fever or chills denies any recent cough there's been no nausea vomiting or diarrhea. The patient is on blood thinner. He is known to have a low platelet count. On 08/15/2017 he did have blood work done that showed a total bili of 8.6, direct bili of 4.5, PT of 22.5, INR of 2.09, platelets of 29,000 and ammonia level of 16. Pulse ox on room air is running about 96-98%. Abdominal Pain Score (Numeric/FACES): 8 - Related Data Allergies Allergy/AdvReac Type Severity Reaction Status Date / Time penicillin Allergy Cannot Verified 05/20/18 05:39 Remember venom-honey bee Allergy Cannot Verified 05/20/18 05:39 [bee venom (honey bee)] Remember codeine AdvReac Dizziness Verified 05/20/18 05:39 Home Meds: Home Meds Fish Oil/Nunnelly-3 Fatty Acids [Fish Oil] 1,000 mg PO DAILY 11/12/14 [History] Aspirin [Halfprin] 81 mg PO DAILY 05/20/18 [History] Docusate Sodium 100 mg PO DAILY 05/20/18 [History] Folic Acid 1 mg PO DAILY 05/20/18 [History] Furosemide 20 mg PO DAILY 05/20/18 [History] Lactulose 10 gm PO DAILY 05/20/18 [History] Lansoprazole 15 mg PO DAILY 05/20/18 [History] Multivit,Calc,Mins/Iron/Folic [Therapeutic-M Tablet] 1 tab PO DAILY 05/20/18 [ History] Nitroglycerin 0.4 mg SL ASDIRECTED PRN 05/20/18 [History] Potassium Chloride 20 meq PO DAILY 05/20/18 [History] Spironolactone [Aldactone] 25 mg PO DAILY 05/20/18 [History] Thiamine [Vitamin B-1] 100 mg PO DAILY 05/20/18 [History] Ticagrelor [Brilinta] 90 mg PO BID 05/20/18 [History] atorvaSTATin [Lipitor] 40 mg PO DAILY 05/20/18 [History] Past Medical History HEENT History: Reports: Impaired Vision, Other (See Below) Other HEENT History: pt reports that he wears his glasses for reading only Respiratory History: Reports: Sleep Apnea Other Respiratory History: doesn't wear c-pap-does not work for him Gastrointestinal History: Reports: Jaundice Other Musculoskeletal History: lower back pain Psychiatric History: Reports: Addiction Other Psychiatric History: alcohol - Past Surgical History Musculoskeletal Surgical History: Reports: Other (See Below) Other Musculoskeletal Surgeries/Procedures:: low back and neck surgery Social & Family History - Family History Family Medical History: Noncontributory ED ROS GENERAL - Review of Systems Review Of Systems: See Below Constitutional: Denies: Fever, Chills HEENT: Reports: No Symptoms Respiratory: Reports: Shortness of Breath. Denies: Wheezing, Cough Cardiovascular: Denies: Chest Pain Endocrine: Reports: No Symptoms GI/Abdominal: Reports: Abdominal Pain, Other (Marked ascites and increased swelling). Denies: Diarrhea, Nausea, Vomiting : Reports: No Symptoms Musculoskeletal: Reports: Other (Lower extremity swelling slightly) Skin: Reports: No Symptoms Neurological: Reports: No Symptoms Psychiatric: Reports: No Symptoms Hematologic/Lymphatic: Reports: No Symptoms ED EXAM, GI/ABD - Physical Exam Exam: See Below Exam Limited By: No Limitations General Appearance: Alert, WD/WN, Mild Distress Eyes: Bilateral: Normal Appearance (Jaundiced) Ears: Normal External Exam Nose: Normal Inspection Throat/Mouth: Normal Inspection, Normal Lips, Normal Voice, No Airway Compromise Head: Normocephalic Neck: Supple Respiratory/Chest: No Respiratory Distress, Lungs Clear, Normal Breath Sounds, Other (He has decreased breath sounds in the right base but I don't hear any rales or crackles and I think is due to his ascites pushing his diaphragm up, he is noted to have a bruise on his sternum where they did CPR) Cardiovascular: Regular Rate, Rhythm, No Murmur GI/Abdominal Exam: Other (Marked abdominal distention from ascites, he has a splash noted on examination, bowel sounds are quiet, very tender on palpation and there is edema across his lower abdomen below the umbilicus) Back Exam: Decreased Range of Motion, Other (Is decreased function is related to his massive ascites) Extremities: Other (He does have some puffy swelling in the lower extremities up to his hips and then you can see the lower abdominal edema below the umbilicus, noted extensive bruising of his right ventral forearm from previous IVs) Neurological: Alert, Oriented Psychiatric: Normal Affect, Normal Mood Skin Exam: Warm, Dry, Jaundice EKG INTERPRETATION EKG Date: 05/20/18 Time: 05:21 EKG Interpretation Comments: Normal sinus rhythm with a rate of 88. There are no acute ST or T-wave changes, no acute ischemia noted, he might have a hint of some mild ischemia in the lateral leads but it is not marked. He has a normal QRS axis. Course - Vital Signs Last Recorded V/S: Last Vital Signs Temp 98.5 F 05/20/18 05:29 Pulse 91 05/20/18 06:41 Resp 12 05/20/18 06:41 BP 123/75 05/20/18 06:42 Pulse Ox 95 05/20/18 06:41 - Orders/Labs/Meds Orders: Active Orders 24 hr Category Date Time Status EKG Documentation Completion [RC] ASDIRECTED Care 05/20/18 06:03 Active Chest 2V [CR] Stat Exams 05/20/18 05:55 Taken Magnesium Sulfate/Water [Magnesium Sulfate 2 GM in Med 05/20/18 07:15 Active Water 50 ML] 2 gm Premix Bag 1 bag IV Q1H EKG 12 Lead [EK] Stat Ther 05/20/18 06:03 Ordered Medication Orders Magnesium Sulfate 2 gm/ Premix 50 mls @ 25 mls/hr IV Q1H GIANFRANCO Stop: 05/20/18 09:14 Last Admin: 05/20/18 07:25 Dose: 25 mls/hr Labs: Laboratory Tests 05/20/18 05/20/18 05/20/18 Range/Units 05:40 05:40 05:40 WBC 7.64 (4.23-9.07) K/mm3 RBC 2.35 L (4.63-6.08) M/mm3 Hgb 7.9 L (13.7-17.5) gm/L Hct 23.4 L (40.1-51.0) % MCV 99.6 H (79.0-92.2) fl MCH 33.6 H (25.7-32.2) pg MCHC 33.8 (32.2-35.5) g/dl RDW Std Deviation 48.3 H (35.1-43.9) fL Plt Count 91 L (163-337) K/mm3 MPV 9.1 L (9.4-12.3) fl Neut % (Auto) 77.3 H (34.0-67.9) % Lymph % (Auto) 6.0 L (21.8-53.1) % Cocke % (Auto) 15.3 H (5.3-12.2) % Eos % (Auto) 1.2 (0.8-7.0) Baso % (Auto) 0.1 (0.1-1.2) % Neut # (Auto) 5.90 H (1.78-5.38) K/mm3 Lymph # (Auto) 0.46 L (1.32-3.57) K/mm3 Cocke # (Auto) 1.17 H (0.30-0.82) K/mm3 Eos # (Auto) 0.09 (0.04-0.54) K/mm3 Baso # (Auto) 0.01 (0.01-0.08) K/mm3 Manual Slide Review Abnormal smear PT 23.4 H (9.5-12.1) SECONDS INR 2.18 Sodium 121 L (136-145) mEq/L Potassium 3.0 L (3.5-5.1) mEq/L Chloride 87 L (98-107) mEq/L Carbon Dioxide 25 (21-32) mEq/L Anion Gap 12.0 (5-15) BUN 11 (7-18) mg/dL Creatinine 0.9 (0.7-1.3) mg/dL Est Cr Clr Drug Dosing TNP Estimated GFR (MDRD) > 60 (>60) mL/min BUN/Creatinine Ratio 12.2 L (14-18) Glucose 132 H (74-106) mg/dL Calcium 7.4 L (8.5-10.1) mg/dL Magnesium (1.8-2.4) mg/dl Total Bilirubin 6.4 H (0.2-1.0) mg/dL AST 247 H (15-37) U/L ALT 89 H (16-63) U/L Alkaline Phosphatase 144 H (46-116) U/L Ammonia (11-32) umol/L Troponin I (0.00-0.056) ng/mL NT-Pro-B Natriuret Pep (0-125) pg/mL Total Protein 5.0 L (6.4-8.2) g/dl Albumin 2.2 L (3.4-5.0) g/dl Globulin 2.8 gm/dL Albumin/Globulin Ratio 0.8 L (1-2) Lipase 310 (73-393) U/L 05/20/18 05/20/18 05/20/18 Range/Units 05:40 05:40 05:40 WBC (4.23-9.07) K/mm3 RBC (4.63-6.08) M/mm3 Hgb (13.7-17.5) gm/L Hct (40.1-51.0) % MCV (79.0-92.2) fl MCH (25.7-32.2) pg MCHC (32.2-35.5) g/dl RDW Std Deviation (35.1-43.9) fL Plt Count (163-337) K/mm3 MPV (9.4-12.3) fl Neut % (Auto) (34.0-67.9) % Lymph % (Auto) (21.8-53.1) % Cocke % (Auto) (5.3-12.2) % Eos % (Auto) (0.8-7.0) Baso % (Auto) (0.1-1.2) % Neut # (Auto) (1.78-5.38) K/mm3 Lymph # (Auto) (1.32-3.57) K/mm3 Cocke # (Auto) (0.30-0.82) K/mm3 Eos # (Auto) (0.04-0.54) K/mm3 Baso # (Auto) (0.01-0.08) K/mm3 Manual Slide Review PT (9.5-12.1) SECONDS INR Sodium (136-145) mEq/L Potassium (3.5-5.1) mEq/L Chloride (98-107) mEq/L Carbon Dioxide (21-32) mEq/L Anion Gap (5-15) BUN (7-18) mg/dL Creatinine (0.7-1.3) mg/dL Est Cr Clr Drug Dosing Estimated GFR (MDRD) (>60) mL/min BUN/Creatinine Ratio (14-18) Glucose (74-106) mg/dL Calcium (8.5-10.1) mg/dL Magnesium 1.7 L (1.8-2.4) mg/dl Total Bilirubin (0.2-1.0) mg/dL AST (15-37) U/L ALT (16-63) U/L Alkaline Phosphatase (46-116) U/L Ammonia (11-32) umol/L Troponin I 0.118 H* (0.00-0.056) ng/mL NT-Pro-B Natriuret Pep 216 H (0-125) pg/mL Total Protein (6.4-8.2) g/dl Albumin (3.4-5.0) g/dl Globulin gm/dL Albumin/Globulin Ratio (1-2) Lipase (73-393) U/L 05/20/18 Range/Units 06:23 WBC (4.23-9.07) K/mm3 RBC (4.63-6.08) M/mm3 Hgb (13.7-17.5) gm/L Hct (40.1-51.0) % MCV (79.0-92.2) fl MCH (25.7-32.2) pg MCHC (32.2-35.5) g/dl RDW Std Deviation (35.1-43.9) fL Plt Count (163-337) K/mm3 MPV (9.4-12.3) fl Neut % (Auto) (34.0-67.9) % Lymph % (Auto) (21.8-53.1) % Cocke % (Auto) (5.3-12.2) % Eos % (Auto) (0.8-7.0) Baso % (Auto) (0.1-1.2) % Neut # (Auto) (1.78-5.38) K/mm3 Lymph # (Auto) (1.32-3.57) K/mm3 Cocke # (Auto) (0.30-0.82) K/mm3 Eos # (Auto) (0.04-0.54) K/mm3 Baso # (Auto) (0.01-0.08) K/mm3 Manual Slide Review PT (9.5-12.1) SECONDS INR Sodium (136-145) mEq/L Potassium (3.5-5.1) mEq/L Chloride (98-107) mEq/L Carbon Dioxide (21-32) mEq/L Anion Gap (5-15) BUN (7-18) mg/dL Creatinine (0.7-1.3) mg/dL Est Cr Clr Drug Dosing Estimated GFR (MDRD) (>60) mL/min BUN/Creatinine Ratio (14-18) Glucose (74-106) mg/dL Calcium (8.5-10.1) mg/dL Magnesium (1.8-2.4) mg/dl Total Bilirubin (0.2-1.0) mg/dL AST (15-37) U/L ALT (16-63) U/L Alkaline Phosphatase (46-116) U/L Ammonia < 10 L (11-32) umol/L Troponin I (0.00-0.056) ng/mL NT-Pro-B Natriuret Pep (0-125) pg/mL Total Protein (6.4-8.2) g/dl Albumin (3.4-5.0) g/dl Globulin gm/dL Albumin/Globulin Ratio (1-2) Lipase (73-393) U/L Meds: Medications Generic Name Dose Route Start Last Admin Trade Name Freq PRN Reason Stop Dose Admin Magnesium Sulfate 2 gm/ Premix 50 mls @ 25 mls/hr 05/20/18 07:15 05/20/18 07: 25 IV 05/20/18 09:14 25 mls/hr Q1H GIANFRANCO Administration Discontinued Medications Generic Name Dose Route Start Last Admin Trade Name Yovaniq PRN Reason Stop Dose Admin Potassium Bicarbonate 40 meq 05/20/18 07:11 05/20/18 07:25 Effer-K PO 05/20/18 07:12 40 meq ONETIME ONE Administration - Radiology Interpretation Free Text/Narrative:: Marked elevation of the diaphragm on the right I do not see any collection of fluid in his lungs at this time. - Re-Assessments/Exams Free Text/Narrative Re-Assessment/Exam: 05/20/18 06:38 Please note that the patient has a severe anemia of 7.9 with a platelet count of 91,000, PTT of 23.4, INR of 2.18, potassium of 3.0, normal kidney function but a decreased calcium of 7.4, decreased magnesium 1.7, mild elevation of his liver enzymes, total bilirubin 6.4 and his lipase is 318. 05/20/18 06:59 Patient's ammonia level is less than 10, proBNP is 216 and his troponin is 0.118. I expect for his proBNP and troponin to be elevated simply because he has cirrhosis and portal hypertension. His EKG did not show any acute changes. 05/20/18 07:[address] Snowden regarding the patient and he agrees to accept the patient in transport to [facility]. We will make those arrangements at this time. He will be a direct admit. I spoke to the patient and his significant other regarding the arrangements and they are in agreement with the transport. 05/20/18 07:25 The ambulance service has been called to take the patient to [facility] for further evaluation and treatment. 05/20/18 07:44 The ambulance is here now to transport the patient to [facility]. Departure - Departure Time of Disposition: 07:23 Disposition: DC/Tfer to Acute Hospital 02 Condition: Poor Clinical Impression: Severe anemia, Macrocytic anemia, Thrombocytopenia, Prothrombin time increased , Elevated INR, Hypokalemia, Hypocalcemia, Hypomagnesemia, Total bilirubin, elevated, Elevated liver enzymes Liver cirrhosis Qualifiers: Hepatic cirrhosis type: alcoholic cirrhosis Ascites presence: with ascites Qualified Code(s): K70.31 - Alcoholic cirrhosis of liver with ascites Ascites Qualifiers: Ascites type: due to alcoholic cirrhosis Qualified Code(s): K70.31 - Alcoholic cirrhosis of liver with ascites - Discharge Information Referrals: Lisette Koehler MD [Primary Care Provider] - Additional Instructions: I spoke to Dr. Snowden at [facility] and he agrees to accept the patient in transport for further evaluation and treatment ED Communication - ED Communication Date/Time Date: 05/20/18 Time Called: 07:15 - Discussed Case With (1) Discussed Case With (1): Admitting Provider Person/s Notified (1): Dr. Snowden (He accepts the patient in transport) - My Orders Last 24 Hours: My Active Orders 05/20/18 05:55 Chest 2V [CR] Stat 05/20/18 06:03 EKG Documentation Completion [RC] ASDIRECTED EKG 12 Lead [EK] Stat 05/20/18 07:15 Magnesium Sulfate/Water [Magnesium Sulfate 2 GM in Water 50 ML] 2 gm Premix Bag 1 bag IV Q1H - Assessment/Plan Last 24 Hours: My Active Orders 05/20/18 05:55 Chest 2V [CR] Stat 05/20/18 06:03 EKG Documentation Completion [RC] ASDIRECTED EKG 12 Lead [EK] Stat 05/20/18 07:15 Magnesium Sulfate/Water [Magnesium Sulfate 2 GM in Water 50 ML] 2 gm Premix Bag 1 bag IV Q1H
[2018-05-20 06:59] VITALS: BP 123/75
[2018-05-20] MEDS ORDERED: Potassium Bicarbonate/Cit Ac 20 MEQ Effervescent Tab PO ONE (07:11)
[2018-05-20] MEDS ORDERED: Magnesium Sulfate/Water 2 GM in Premix Bag 1 BAG IV SCH (07:15)
--- NOTE | 2018-05-20 18:15 | CR ---
Chest: Two views of the chest were obtained. Comparison: No prior chest x-ray. Elevated right hemidiaphragm is seen. This is most likely chronic. Lungs otherwise are clear. Heart size and mediastinum are normal. Previous cervical spine surgery is seen. Slight degenerative change is noted within the spine. Impression: 1. Elevated right hemidiaphragm which is most likely chronic. 2. Nothing acute is seen with other incidental findings. Diagnostic code #2
== END 2018-05-20 07:57 ==
LOC: JD.ED 05:12
DX: K70.31 Alcoholic cirrhosis of liver with ascites (principal); D53.9 Nutritional anemia, unspecified; D69.6 Thrombocytopenia, unspecified; R79.1 Abnormal coagulation profile; E87.6 Hypokalemia; E83.51 Hypocalcemia; R74.8 Abnormal levels of other serum enzymes; Z88.0 Allergy status to penicillin; Z91.030 Bee allergy status; Z88.5 Allergy status to narcotic agent; Z79.899 Other long term (current) drug therapy
CPT/HCPCS: 36415; 71046; 80053; 82140; 83690; 83735; 83880; 84484; 85025; 85610; 93005; 96365; 99285; A9270; J3475; 93010